=== PATIENT | female | born 1955 ===

== ENCOUNTER 2024-04-01 15:25 | Outpatient (AMB) | payer MEDICARE, OTHER, SELFPAY ==
--- NOTE | 2024-04-01 15:31 | HO.NEPHOV_ITS ---
Vital Signs 04/01/24 15:33 Height 5 ft 6 in Weight 199 lb 6 oz BMI 32.2 BP 116/82 Blood Pressure Location Rt brachial Position Sitting Pulse 102 H Pulse Source Pulse Oximeter Pulse Oximetry (%) 96 Oxygen Delivery Method Room Air Intake Visit Reasons: Continuing care- CKD Quality Control Checker Required: No Accompanied by: Self / Same As Patient Allergies No Known Allergies Allergy (Verified 04/01/24 15:31) Medication List - Last Reconciled 04/01/24 by Nima Medrano MD cholecalciferol (vitamin D3) 50 mcg PO DAILY levothyroxine (Synthroid) 125 mcg PO DAILY losartan 25 mg PO DAILY rosuvastatin 10 mg PO DAILY HPI Comments Details: 69 yr old woman with HTN an d hypercalcemia s/p Parathyroidectomy h/o chronic cough due to GERD PFSH Medical History (Updated 04/01/24 @ 15:36 by Nima Medrano MD) Stage 3 chronic kidney disease Hyperparathyroidism Surgical History H/O thyroidectomy History of appendectomy Family History Father Diabetes Social History (Updated 04/01/24 @ 15:33 by Rashida Blevins MA) Alcohol intake: current Comment: Social Patient Tobacco Use Status: Never used Tobacco Physical Exam Vital Signs: Last Vital Signs Pulse 102 H 04/01/24 15:33 BP 116/82 04/01/24 15:33 Pulse Ox 96 04/01/24 15:33 Oxygen Delivery Method Room Air 04/01/24 15:33 BMI result Body Mass Index 32.2 Const General: comfortable; No acute distress Orientation/consciousness: patient oriented x3 Eyes General: appearance normal, both eyes and all related structures Visual Inman: normal visual inman by confrontation Neck Neck: Yes supple and Yes no JVD Resp Effort & Inspection: normal respiratory effort and respiratory effort not decreased Auscultation: rhonchi Cardio Palpation: no palpable S3 and no palpable S4 Heart sounds: no rubs GI Inspection: Yes normal to inspection Palpation (GI): Soft to palpation Percussion: Yes normal to percussion Auscultation: normal bowel sounds General: Yes no CVA tenderness Back/Spine/Pelvis Back: no CVA tenderness Skin General skin exam: no petechiae and no purpura Neuro General: patient oriented x3 and no focal motor deficits Extrem General: No clubbing and No edema Results Reviewed Nephrology Results: No Data to Display Assessment & Plan Assessment & Plan (1) HTN (hypertension): Code(s): I10 - Essential (primary) hypertension Category: Medical (2) Hypercalcemia: Code(s): E83.52 - Hypercalcemia Category: Medical (3) CKD (chronic kidney disease): Code(s): N18.9 - Chronic kidney disease, unspecified Category: Medical Plan Blood Pressure well controlled Encouraged to stay on low-sodium diet Discussed weight loss Continue with current medications History of hypercalcemia she follows with endocrinology. Orders: Orders Parathyroid Hormone Intact 6 Months E83. - Hypercalcemia, I10 - Essential (primary) hypertension, N18.9 - Chronic kidney disease, unspecified Complete Blood Count Auto Diff 6 Months E83.52 - Hypercalcemia, I10 - Essential (primary) hypertension, N18.9 - Chronic kidney disease, unspecified Basic Metabolic Panel 6 Months E83.52 - Hypercalcemia, I10 - Essential (primary) hypertension, N18.9 - Chronic kidney disease, unspecified Coding Level of Care Code Est Pt Level 3 (89974) Diagnoses HTN (hypertension) I10 Hypercalcemia E83. CKD (chronic kidney disease) N18.9
[2024-04-01 15:33] VITALS: BP 116/82; PULSE 102; O2SAT 96; BMI 32.2
== END 2024-04-01 15:52 | disposition home or self-care (01) ==
PROVIDERS: PCP Physician Assistant Medical; Visit Provider Internal Medicine Hypertension Specialist
DX: I12.9 Hypertensive chronic kidney disease with stage 1 through stage 4 chronic kidney disease, or unspecified chronic kidney disease (principal); N18.9 Chronic kidney disease, unspecified; E83.52 Hypercalcemia
CPT/HCPCS: 99213

== ENCOUNTER → 2024-04-01 15:25 | Outpatient (BNVA) | payer MEDICARE, OTHER, SELFPAY | PROVIDERS: PCP Physician Assistant Medical; Visit Provider Internal Medicine Hypertension Specialist | DX: E83.52 Hypercalcemia (principal); I12.9 Hypertensive chronic kidney disease with stage 1 through stage 4 chronic kidney disease, or unspecified chronic kidney disease; N18.9 Chronic kidney disease, unspecified | CPT/HCPCS: 99212 ==

== ENCOUNTER 2024-09-09 14:02 | Outpatient (AMB) | payer MEDICARE, OTHER, SELFPAY ==
--- NOTE | 2024-09-09 14:05 | HO.NEPHOV ---
Vital Signs 09/09/24 14:07 Height 5 ft 6 in Weight 199 lb BMI 32.1 BP 122/86 Blood Pressure Location Lt brachial Position Sitting Pulse 87 Pulse Source Pulse Oximeter Pulse Oximetry (%) 98 Oxygen Delivery Method Room Air Intake Visit Reasons: 6 mon follow up/ Conf Cytotechnologist/Cytology Supervisor Required: No Accompanied by: Self / Same As Patient Allergies No Known Allergies Allergy (Verified 09/09/24 14:09) Medication List - Last Reconciled 09/09/24 by Nima Medrano MD cholecalciferol (vitamin D3) 50 mcg PO DAILY levothyroxine (Synthroid) 125 mcg PO DAILY losartan 25 mg PO DAILY montelukast 10 mg PO DAILY rosuvastatin 10 mg PO DAILY HPI Comments Details: 69 yr old woman with HTN an d hypercalcemia s/p Parathyroidectomy h/o chronic cough due to GERD Recently seen by Endocrine. No changes made BAck pain - chronic- waiting for PT [facility] Medical History (Updated 04/01/24 @ 15:36 by Nima Medrano MD) Stage 3 chronic kidney disease Hyperparathyroidism Surgical History H/O thyroidectomy History of appendectomy Family History Father Diabetes Social History Alcohol intake: current Comment: Social Patient Tobacco Use Status: Never used Tobacco Physical Exam Vital Signs: Last Vital Signs Pulse 87 09/09/24 14:07 BP 122/86 09/09/24 14:07 Pulse Ox 98 09/09/24 14:07 Oxygen Delivery Method Room Air 09/09/24 14:07 BMI result Body Mass Index 32.1 Comfortable Neck supple no JVD. Lungs entry equal no rales. Heart S1-S2 heard no gallop or rub. Abdomen soft nontender. Neuro alert awake oriented. No asterixis. Extremities no edema. Results Reviewed Nephrology Results: No Data to Display Assessment & Plan Assessment & Plan (1) HTN (hypertension): Code(s): I10 - Essential (primary) hypertension Category: Medical (2) Hypercalcemia: Code(s): E83.52 - Hypercalcemia Category: Medical (3) CKD (chronic kidney disease): Code(s): N18.9 - Chronic kidney disease, unspecified Category: Medical Plan Blood Pressure well controlled Encouraged to stay on low-sodium diet Discussed weight loss Continue with current medications History of hypercalcemia she follows with endocrinology. Orders: Orders Comprehensive Met. Panel 1 Year E83.52 - Hypercalcemia, N18.9 - Chronic kidney disease, unspecified Coding Level of Care Code Est Pt Level 4 (32468) Diagnoses HTN (hypertension) I10 Hypercalcemia E83.52 CKD (chronic kidney disease) N18.9
[2024-09-09 14:07] VITALS: BP 122/86; PULSE 87; O2SAT 98; BMI 32.1
--- OUTSIDE RECORDS SUMMARY | 2024-09-09 15:21 | XMS_ITS ---
Author Name [facility] Organization Unknown Results Test Name/Text Value Interpretation Date Range Source Cholest SerPl-mCnc 220mg/dL Above high normal [id number] - 200 [facility] Cholest/HDLc SerPl 3.9(calc) Normal - 5 [facility] LDLc SerPl Calc-mCnc 136mg/dL(calc) Above high normal [id number] [facility] Trigl SerPl-mCnc 149mg/dL Normal - 150 [facility] NonHDLc SerPl-mCnc 164mg/dL(calc) Above high normal 20240716 0724 - 130 [facility] HDLc SerPl-mCnc 56mg/dL Normal - Q [facility] Prot SerPl-mCnc 7.3g/dL Normal 6.1 - 8.1 Q [facility] ALP SerPl-cCnc 60U/L Normal 37 - 153 [facility] BUN/Creat SerPl 17(calc) Normal 6 - 22 Q [facility] Albumin/Glob SerPl 1.4(calc) Normal 1 - 2.5 [facility] Creat SerPl-mCnc 1.43mg/dL Above high normal 0. 5 - 1.05 [facility] Potassium SerPl-sCnc 4.6mmol/L Normal 3.5 - 5.3 [facility] Albumin SerPl-mCnc 4.2g/dL Normal 3.6 - 5. 1 [facility] Sodium SerPl-sCnc 139mmol/L Normal 135 - 146 [facility] Globulin Ser Calc-mCnc 3.1g/dL(calc) Normal 1.9 - 3.7 [facility] Bilirub SerPl-mCnc 0.6mg/dL Normal 0.2 - 1. 2 [facility] Calcium SerPl-mCnc 9.5mg/dL Normal 8.6 - 10 .4 [facility] BUN SerPl-mCnc 24mg/dL Normal [id number] 7 - 25 [facility] Glucose SerPl-mCnc 93mg/dL Normal [id number] 65 - 99 [facility] eGFRcr SerPlBld CKD-EPI 2020 40mL/min/1.73m 2 Below low normal [id number] - [facility] AST SerPl-cCnc 18U/L Normal [id number] 10 - 35 [facility] CO2 SerPl-sCnc 24mmol/L Normal [id number] 20 - 32 [facility] Chloride SerPl-sCnc 104mmol/L Normal [id number] 98 - 11 0 [facility] ALT SerPl-cCnc 13U/L Normal [id number] 6 - 29 [facility] TSH SerPl-aCnc 0.97mIU/L Normal 0.4 - 4.5 [facility] MCH RBC Qn Auto 31pg Normal [id number] 27 - 33 Q [facility] MCV RBC Auto 93fL Normal [id number] 80 - 100 [facility] T RBC # Bld Auto 4.45Million/uL Normal [id number] 3.8 - 5 .1 [facility] Monocytes # Bld Auto 502cells/uL Normal [id number] 200 - 950 [facility] PMV Bld Patricio-Meliton 10.2fL Normal 7.5 - 12 .5 [facility] Monocytes/leuk NFr Bld Auto 7.6% Normal [id number] [facility] Basophils/leuk NFr Bld Auto 1.4% Normal [id number] [facility] Neutrophils/leuk NFr Bld Auto 67.6% Normal [id number] [facility] RDW RBC Auto-Rto 12.5% Normal [id number] 11 - 15 [facility] Lymphocytes/leuk NFr Bld Auto 20.7% Normal [id number] [facility] WBC # Bld Auto 6.6Thousand/uL Normal [id number] 3.8 - 1 0.8 [facility] Platelet # Bld Auto 343Thousand/uL Normal [id number] 14 0 - 400 [facility] Neutrophils # Bld Auto 4462cells/uL Normal [id number] 1500 - 7800 [facility] Hgb Bld-mCnc 13.8g/dL Normal [id number] 11.7 - 15.5 [facility] Hct VFr Bld Auto 41.4% Normal 35 - 45 [facility] Eosinophil/leuk NFr Bld Auto 2.7% Normal [facility] Basophils # Bld Auto 92cells/uL Normal 0 - 2 00 [facility] MCHC RBC Auto-mCnc 33.3g/dL Normal 32 - 36 [facility] Lymphocytes # Bld Auto 1366cells/uL Normal 850 - 3900 [facility] Eosinophil # Bld Auto 178cells/uL Normal 15 - 500 [facility] HbA1c MFr Bld 5.7%oftotalHgb Above high normal - 5.7 [facility] Est. average glucose Bld gHb Est-mCnc 126mg/dL(calc) Normal [facility] History of Medication Use Medication Directions Dispensed Refills Start Date End Date Stat us famotidine 20 mg tablet active losartan 25 mg tablet Take 1 tablet every day by oral route. active Jardiance 10 mg tablet 5 completed montelukast 10 mg tablet active benzonatate 100 mg capsule active pantoprazole 40 mg tablet,delayed release active clobetasol 0.05 % topical ointment active cephalexin 500 mg capsule TAKE 1 CAPSULE BY MOUTH TWICE DAILY FOR 7 DAYS 5 completed rosuvastatin 20 mg tablet Take 1 tablet every day by oral route. active albuterol sulfate HFA 90 mcg/actuation aerosol inhaler active Synthroid 125 mcg tablet active nitrofurantoin monohydrate/macrocry stals 100 mg capsule TAKE 1 CAPSULE BY MOUTH EVERY 12 HOURS FOR 7 DAYS 5 completed budesonide-formotero l HFA 160 mcg-4.5 mcg/actuation aerosol inhaler INHALE 2 PUFFS INTO THE LUNGS TWICE DAILY active clobetasol 0.05 % topical ointment APPLY A THIN LAYER TO THE AFFECTED AREA(S) BY TOPICAL ROUTE 2 TIMES PER DAY; not on face; 2 weeks on/2 weeks off 09/03/2024 active vitamin D3 (cholecalciferol) 10 MCG (400 UNIT) tablet Take 1 tablet (10 mcg total) by mouth daily. active estradiol (ESTRACE VAGINAL) 0.1 MG/GM vaginal cream Place 0.2 g vaginally daily. Small amount at the vaginal introitus and periurethral tissue daily for 2 weeks and then twice a week. 05/31/2022 active Macrobid 100 mg capsule active rosuvastatin (CRESTOR) tablet 20 mg 07/18/2023 active Synthroid 125 MCG tablet TAKE 1 TABLET EVERY MORNING ON AN EMPTY STOMACH 03/29/2023 active sumatriptan 100 mg tablet Take 1 tablet (100 mg total) by mouth 2 (two) times a day as needed for migraine. 11/19/2018 3 completed rosuvastatin (CRESTOR) tablet 20 mg 07/18/2023 active Synthroid 125 MCG tablet TAKE 1 TABLET EVERY MORNING ON AN EMPTY STOMACH 03/29/2023 active metformin 500 mg tablet TAKE 1 TABLET BY MOUTH EVERY DAY WITH BREAKFAST, INCREASE TO 1 TABLET TWICE DAILY DAILY WITH MEALS AFTER 2 WEEKS 06/06/2022 3 completed albuterol 108 (90 Base) MCG/ACT inhaler Inhale 2 puffs into the lungs every 6 (six) hours as needed for wheezing or shortness of breath. 06/21/2022 active pantoprazole 40 mg tablet,delayed release Take 1 tablet (40 mg total) by mouth every morning on an empty stomach. 11/29/2023 4 completed montelukast 10 mg tablet Take 1 tablet (10 mg total) by mouth daily. For allergies (in addition to Zyrtec) 07/17/2023 active estradiol (ESTRACE VAGINAL) 0.1 MG/GM vaginal cream Place 0.2 g vaginally daily. Small amount at the vaginal introitus and periurethral tissue daily for 2 weeks and then twice a week. 05/31/2022 4 aborted rosuvastatin 10 mg tablet Take 1 tablet (10 mg total) by mouth every night at bedtime. 04/18/2022 3 completed cetirizine (ZyrTEC) 10 MG tablet Take 1 tablet (10 mg total) by mouth daily. As needed active Problems Problem Status Onset Date Problem Type Date of Resolution Source Hypothyroidism, unspecified active ProblemAct CT_PHYSONE Urgency of urination active ProblemAct CT_PHYSONE Cough, unspecified type active EncounterDiagnos isAct CTTHSFRAN Lipoprotein above reference range active ProblemAct CT_SONE Chronic low back pain active ProblemAct CT_SONE Chronic cough active ProblemAct ENS_[facility] Hypercholesterolemia active ProblemAct ENS_PH[facility] Obesity caused by energy imbalance active ProblemAct ENS_PH[facility] Ascending aortic aneurysm active ProblemAct CTTHNEMG Diastolic dysfunction active ProblemAct CT_SONE Calcification of coronary artery active ProblemAct CT_SONE History of primary hyperparathyroidism active ProblemAct CT_SONE Osteopenia active ProblemAct CT_SONE Body mass index 30+ - obesity active ProblemAct CT_SONE Acquired hypothyroidism active ProblemAct CT_SONE Osteoporosis active ProblemAct CT_SONE Chronic kidney disease stage 3A active ProblemAct CT_SONE Hyperlipidemia, unspecified active ProblemAct CT_PHYSONE Urinary tract infection, site not specified active ProblemAct CT_PHYSONE Stage 3 chronic kidney disease active ProblemAct CTTHNEMG Non-seasonal allergic rhinitis active ProblemAct CTTHNEMG Adult hypothyroidism active ProblemAct CTTHNEMG Osteoporosis active ProblemAct CTTHNEMG Hypercalcemia active ProblemAct CTTHNEMG Elevated Lp(a) active ProblemAct CTTHNEMG Gastroesophageal reflux disease with esophagitis active ProblemAct CTTHNEMG Migraine without aura and without status migrainosus, not intractable active ProblemAct CTTHNEMG Essential hypertension active ProblemAct CTTHNEMG Class 1 obesity due to excess calories with serious comorbidity and body mass index (BMI) of 31.0 to 31.9 in adult active ProblemAct CTTHNEMG Primary snoring active ProblemAct CTTHNEMG Family history of osteoporosis in mother active ProblemAct CTTHNEMG Pure hypercholesterolemia active ProblemAct ENS_PHCCT Family history of osteoporosis active ProblemAct ENS_PHCCT Snoring active ProblemAct ENS_[facility] History of primary hyperparathyroidism active ProblemAct CTTHNEMG Pure hypercholesterolemia active ProblemAct CTTHNEMG Ascending aorta dilatation active ProblemAct CT_SONE Recurrent urinary tract infection active ProblemAct ENS_[facility] History of procedure active ProblemAct ENS_[facility] Essential hypertension active ProblemAct ENS_[facility] kidney disease active ProblemAct CT_P HYSONE Chronic cough active ProblemAct CTTHNEMG Gu's esophagus with dysplasia active ProblemAct CTTHNEMG Hyperlipidemia active ProblemAct CT_SONE Chronic cough active ProblemAct CT_SONE Aneurysm of ascending aorta active ProblemAct ENS_[facility] Allergic rhinitis active ProblemAct ENS_[facility] Chronic kidney disease stage 3 active ProblemAct ENS_[facility] Migraine without aura, not refractory active ProblemAct ENS_PH[facility] Gastro-esophageal reflux disease with esophagitis active ProblemAct ENS_PHCCT Osteoporosis active ProblemAct ENS_PHCCT Barretts esophagus with dysplasia active ProblemAct [facility] Lipoprotein (a) hyperlipoproteinemia active ProblemAct ENS_PH[facility] Hypothyroidism active ProblemAct ENS_[facility] Urinary tract infection, site not specified active ProblemAct CT_PHYSONE Hypercalcemia active ProblemAct [facility] History of primary hyperparathyroidism active ProblemAct ENS_[facility] Immunizations Vaccine Date Source Lot Number Status Influenza, injectable, quadr ivalent, preservative free 07/12/2015 [facility] [id number] completed pneumococcal polysaccharide vaccine, 23 valent 06/22/2014 [facility] completed SARS-COV-2 (COVID-19) vaccin e, mRNA, spike protein, LNP, preservative free, 50 mcg/0.5 mL dose 07/04/2023 [facility] completed zoster vaccine subunit 05/01/2022 [facility] co mpleted zoster vaccine subunit 08/16/2021 [facility] co mpleted pneumococcal conjugate vaccine, 13 valent 07/08/2014 [facility] completed zoster vaccine, live 08/05/2016 [facility] comp leted influenza, injectable, quadr ivalent, contains preservative 06/15/2016 [facility] [id number] completed SARS-COV-2 (COVID-19) vaccin e, mRNA, spike protein, LNP, preservative free, 100 mcg/0.5mL dose 09/28/2020 [facility] KL completed pneumococcal conjugate vaccine, 13 valent 03/22/2017 [facility] completed SARS-COV-2 (COVID-19) vaccin e, mRNA, spike protein, LNP, preservative free, 30 mcg/0.3mL dose 05/08/2022 [facility] completed SARS-COV-2 (COVID-19) vaccin e, mRNA, spike protein, LNP, bivalent booster, preservative free, 30 mcg/0.3 mL dose, mary-sucrose formulation 05/08/2022 [facility] complet ed Influenza, injectable,[place] valent, preservative free, pediatric 06/15/2016 [facility] [id number] com pleted tetanus toxoid, reduced diph theria toxoid, and acellular pertussis vaccine, adsorbed 07/08/2014 [facility] completed Influenza, injectable, quadr ivalent, preservative free 05/13/2018 [facility] [id number] completed pneumococcal polysaccharide vaccine, 23 valent 06/29/2013 [facility] completed Influenza, injectable, quadr ivalent, preservative free 06/04/2019 [facility] [id number] completed influenza, seasonal vaccine, quadrivalent, adjuvanted, 0.5 mL dose, preservative free 07/04/2023 [facility] completed SARS-COV-2 (COVID-19) vaccin e, mRNA, spike protein, LNP, preservative free, 100 mcg/0.5mL dose 10/26/2020 [facility] KL completed
--- OUTSIDE RECORDS SUMMARY | 2024-09-09 15:21 | XMS_ITS | Encounter Summary ---
Author Organization [facility] Address [address] [place] [id number] Care Team Providers Care Boom Operator Name Role Phone Kym Kenny Primary Care Provider [phone] Reason for Visit * Reason Comments Thyroid Nodule Encounter Details Date Type Department Care Team (Latest Contact Info) Description 08/19/2024 10:30 AM EST Consult [facility] Endocrinology [address] [place] [address] Kassandra Berry MD [address] [facility] [address] [place] [address] Hyperparathyroidism (Primary Dx); Acquired hypothyroidism; H/O parathyroidectomy; Stage 3b chronic kidney disease (HCC) Social History Tobacco Use Types Packs/Day Years Used Date Smoking Tobacco: Never Passive Smoke Exposure: Never Smokeless Tobacco: Never Tobacco Cessation:Counseling Given: Not Answered Alcohol Use Standard Drinks/Week Comments Yes 0 (1 standard drink = 0.6 oz pur e alcohol) rare Sex and Gender Information Value Date Recorded Sex Assigned at Not on file Gender Identity Not on file Sexual Orientation Not on file documented as of this encounter Last Filed Vital Signs Vital Sign Reading Time Taken Comments Blood Pressure 160/89 08/19/2024 10:16 AM EST Pulse 101 08/19/2024 10:16 AM EST Temperature - - Respiratory Rate - - Oxygen Saturation 98% 08/19/2024 10:16 AM EST Inhaled Oxygen Concentration - - Weight 51.3 kg (113 lb) 08/19/2024 10:16 AM EST Height 167.6 cm (5' 6 ) 08/19/2024 10:16 AM EST Body Mass Index 18.24 08/19/2024 10:16 AM EST documented in this encounter Patient Instructions * Patient Instructions* Kassandra Berry MD - 08/19/2024 11:02 AM EST Visit [email or web address] for additional resources and information. The keys to prevention of bone loss: 1) Consume calcium 1000 mg a day (1200 mg for women > 60 years old, men > 70 years old) Ideally it is good to get in as much calcium from your diet as possible; if needed you can add calcium supplements to achieve daily goal. Calcium citrate (Citracal) is less constipating than calcium carbonate and is best for people usinga proton pump inhibitor (e.g. Prilosec) TUMS Ultra 1000mg tab = 400mg of calcium. Foods high in calcium (look at labels for exact amounts): -cheese (Congolese, mozzarella, ricotta)= 175-300 mg per 1 oz serving -soymilk with added calcium, soybeans= 300 mg per 8 oz serving -milk, almond milk, coconut milk, rice milk, oat milk that are fortified with calcium = around 300 mg per 1 cup -tofu prepared with calcium= 200-400 mg per 1 oz -salmon= 180 per 3 oz -yogurt (low-fat, Serbian or plain)= 200-300 mg per 6 oz. -broccoli, bok tiffanie (Frisian cabbage, raw)= 60-75 mg per 8 oz. You can calculate your current calcium intake at the following website: https://www.b.edu/shp/kathi/ueaz-8-dwqocmqon-and-supplements/why-calci qj-ju-yfobrrika/calcium-calculator 3) RESISTANCE TRAINING / Weight bearing / Balance exercises: - resistance training, whole body muscle mass maintenance is marvin for keeping bones strong and avoiding falls. Safe training can be done with a local physical therapist or personal clothing laundry aide. -Posture exercises to reduced rounded shoulders -Balance exercise to strengthen legs/core to decrease your risk of falling -Walking 30 minutes a day -Yogarogelio Please check out this helpful website: https://www.bonehealthandosteoporosis.org/wp-content/uploads/BoningUpBrochure_[email or web address] 5x11.pdf documented in this encounter Progress Notes * Kassandra Berry MD - 08/19/2024 10:34 AM EST Images from the original note were not included. ENDOCRINOLOGY Follow-up Progress Note CC: Chief Complaint Patient presents with Thyroid Nodule Patients PCP is DORIS Smith History of present Illness: 67 y.o. presents in follow up of bone health and hyperpara. Initial consultation 2017. Told in distant past she had osteoporosis and treated with Fosamax in early . H/o PTX 2009. No fragility fractures. 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 08/19/24: Known to me from prior practice. Chart reviewed. In the interim since her last visit: Started seeing pulmonary, significant allergies and chronic cough, better on singulair and symbicort. No longer on ARB--stopped on her own. Remains on brand name synthroid 125mcg daily No biotin use. Had labs recently with PCP in July-those have been requested Drinks milk daily and occ yogurt, cheese. No TUMS. No calcium supplements. Had some falls in 2023 but no fractures. Needed stitches around eye, hurt left knee. She thinks it was certain shoes she was wearing. Feels her balance is OK. Was having some orthostasis but has since resolved. No kidney stones no chronic steroid use Remains on PPI 11/26/22: Over past year has had marked variability of her TSH levels. Tired a lot, gaining weight. No constipation. Very dry skin (chronically). Now on lt4 125mcg daily, taking in am, empty stomach, waits at least 1 hour to have coffee. No vitamins. Recent celiac screen negative. Has a chronic cough of unclear etiology, taking vitamin C. No fractures over past year. No kidney stones. Tripped last week, feel to ground, bruise on knee. No kidney stones. Drinking milk, eating yogurt and cheese. No calcium supps. On vitamin D. Walks for exercise, no real resistance training. Ongoing hip pain when walking. Interval History Sep 04, 2021: Healthy since last visit. No acute illnesses or hospitalizations. Skin is really dry and she is not sure if she is had a recent TSH level by her other providers. No falls or fractures. On vit D but no calcium. Drinks milk daily but limited other dairy intake or calcium intake during the day. No kidney stones. No steroid exposures. Continue seeing Dr. Crowley in nephrology and has an upcoming visit in September. Interval History November 2020: Last visit Jun 2019. Labwork in January 2019 c/w secondary hpyerpara with vitamin d insufficiency, inadequate calcium intake and CKD. Healthy since visit 18 months ago. No hospitalizations or ER visits. Medications have been reconciled. No falls, fractures, kidney stones or steroid use since last year. Has been having some left lateral hip pain when she walks. No pain with palpation or sleeping at night. Pain resolves when she rests. Has not had any x- rays or physical therapy evaluation. In review of her history, states she was treated for osteoporosis by Dr. Toscano about 15-20 years ago with Fosamax, a few years . No bone targeted therapy since that time. No history of fragility fractures. Very steady on her feet with no history of falling. Menopause age 44, natural, eventually used HRT about 4-5 years after for about 3 years for hot flashes. Mother has OP, broke her wrist. No h/o kidney stones. Does have a history of primary hyperparathyroidism s/p resection in 2009 at [place]; Parathyroidectomy performed by Dr. Crooks with decline in PTH from 260 to 23 during procedure. Operative report reviewed from February 10, 2010, left lower parathyroid adenoma 1.48 g, measuring 3.2 x 1.0 x 0.7 cm. Surgical pathology showed hypercellular parathyroid tissue consistent with adenoma. Slightly elevated iPTH in 2016, with CKD stage III for which she sees Dr. Crowley. No chronic steroids. No current AED's or anticoagulants. + vitamin D use; no calcium supp use. Milk every day with dinner, sometimes with cereal, yogurt daily. No MVI. No history of cancer or XRT. Walks daily. No strength training. Retired from medical billing. Exposed to second hand smoke, but she is lifelong nonsmoker. Social etoh only. Past medical history: Past Medical History: Diagnosis Date Hyperlipidemia Diagnosis Date Chronic headache CKD (chronic kidney disease) dr yost; cr=1.4; gina small kidney Dyspnea H/O mammogram 06/29/2019 06/11/2019 mammogram History of ETT in 6 months 2014 HLD (hyperlipidemia) not on meds yet Hypothyroidism Obesity No past surgical history on file. Procedure Laterality Date APPENDECTOMY 2009 CHOLECYSTECTOMY 2001 KIDNEY SURGERY 1965 PARATHYROIDECTOMY 2009 Social history: Social History Tobacco Use Smoking status: Never Passive exposure: Never Smokeless tobacco: Never Substance Use Topics Alcohol use: Yes Comment: rare Drug use: Never Family History No family history on file. Problem Relation Age of Onset Osteoporosis Mother Lumbar disc disease Mother Diabetes Father Lung cancer Father COPD Father Smoker Emphysema Father Heart disease Brother Hypertension Brother No Sig Med Hx Brother Osteoarthritis Brother Diabetes Unknown Medications Current Outpatient Medications: albuterol (PROVENTIL HFA; VENTOLIN HFA) 108 (90 Base) MCG/ACT inhaler, Inhale 2 puffs 4 times daily(every 6 hours) as needed., Disp: , Rfl: budesonide-formoterol (SYMBICORT) 160-4.5 MCG/ACT inhaler, Inhale 2 puffs., Disp: , Rfl: cholecalciferol 10 MCG (400 UNIT) tablet, Take 1 tablet (400 Units total) by mouth., Disp: , Rfl: levothyroxine (SYNTHROID, LEVOTHROID) 125 MCG tablet, Take 1 tablet (125 mcg total) by mouth., Disp: , Rfl: montelukast (SINGULAIR) 10 MG tablet, Take 1 tablet (10 mg total) by mouth., Disp: , Rfl: PANTOprazole (PROTONIX) 40 MG EC tablet, Take 1 tablet (40 mg total) by mouth., Disp: , Rfl: rosuvastatin (CRESTOR) 10 MG tablet, Take 1 tablet (10 mg total) by mouth daily., Disp: , Rfl: Allergies Not on File Review of Systems as in HPI. In addition HEENT no blurry vision, no dysphagia CVS no palpitations, no dyspnea on exertion, no chest pain GI no abdominal pain, no change in BMs no dysuria, no polyuria, no nocturia Endo no heat or cold intolerance Physical exam Vitals: 08/19/24 1016 BP: (!) 160/89 Pulse: (!) 101 SpO2: 98% Weight change: Wt Readings from Last 3 Encounters: 08/19/24 51.3 kg (113 lb) Ht Readings from Last 3 Encounters: 08/19/24 1.676 m (5' 6 ) Body mass index is 18.24 kg/m??. Constitutional: Oriented to person, place, and time. She appears well-developed and well-nourished.No distress. Euthyroid without cushingoid or acromegalic features. Overweight, diffusely distributed Head: Normocephalic and atraumatic. Mask in place Eyes: Conjunctivae and EOM are normal. Right eye exhibits no discharge. Left eye exhibits no discharge. No scleral icterus. Neck: One-inch, pale horizontal low anterior neck scar. Normal range of motion. Neck supple. No tracheal deviation present. No thyromegaly present. Cardiovascular: Normal rate, regular rhythm, normal heart sounds and intact distal pulses. Exam reveals no friction rub. No murmur heard. Pulmonary/Chest: Effort normal and breath sounds normal. No stridor. No respiratory distress. She has no wheezes. She has no rales. Musculoskeletal: She exhibits no edema, tenderness or deformity. Spine is straight with no tenderness to palpation. Lymphadenopathy: She has no cervical adenopathy. Neurological: No hand tremors. Negative Romberg. Tandem stance borderline. Skin: Skin is warm and dry. No rash noted. She is not diaphoretic. No erythema. No pallor. No acanthosis or skin tags. No striae. Psychiatric: She has a normal mood and affect. Her behavior is normal. Judgment and thought contentnormal. Labs: July 15, 2024: Total cholesterol 220, HDL 56, triglycerides 149, LDL 136 BUN 24, creatinine 1.43, GFR 40 Calcium 9.5, albumin 4.2, alk phos 60 A1c 5.7% TSH 0.97 Normal CBC December 14, 2022: TSI less than 89 TRAb normal at 1.12 IU per L (less than 2) TPO elevated at 26, TG antibody less than 03 October 2022: IgA 308, negative tissue transglutaminase IgA January 2019: NTX 30 Imaging: Bone density December 20, 2016: Done at [facility] equipment Comparison: 2015 examination L2 and L3 excluded due to degenerative changes. L1, L4 0.923 g% meter squared, T score -2, 3.7% increase Bilateral femurs 0.894 g/cm??, T score -0.9, 2.3% decrease, statistically insignificant. [facility] imaging bone density June 16, 2019: L1-L4 1.0 g/cm??, T score -1.5, 2.4% nonsignificant decrease compared to 2017. Bilateral femurs 0.915 g/cm??, T score -0.7, 2.3% increase compared to 2017 nonsignificant Distal radius 0.906 g/cm??, T score 0.2 Lowest bone density at the lumbar spine consistent with osteopenia. Compared to 2017 no significantchange in the spine and femurs and the right distal radius is normal. July 06, 2021: Bone density at [facility] [employer] L1 through L4 1.042 g/cm??, T score 1.2, 4.2% increase compared to 2019 Left femoral neck 0.924 g/cm??, T score -0.8 Right femoral neck 0.868 g/cm??, T score -1.2 1.2% decrease in the total mean bone density of both femurs, and significant Right forearm 0.908 g/cm??, T score 0.2, no significant interval change compared to prior. Bone density study October 2023, [facility]: Indication and risk factors: Postmenopausal female. Screening for osteoporosis. No priors. Study acquired on a LookIt Advance densitometer. Imaging of the lumbar spine, left forearm and hip was completed. FINDINGS: LUMBAR SPINE Averaged L1 through L4: Bone density: 1.08 g/cm2 Z score: 0.1 T score: -0.9 LEFT HIP Left femoral neck: Bone density: 0.89 g/cm2 Z score: 0.1 T score: -1.0 LEFT FOREARM Left radius 33%: Bone density: 0.92 g/cm2 Z score: 2.2 T score: 0.5 CONCLUSION: 1. Bone density measures within normal limits. ASSESSMENT/PLAN: Ynes Meadows is a 69 y.o. woman with past medical history significant for Gu's esophaguson Protonix, allergies and chronic cough on Symbicort, CKD 3 (sees Dr. Robin), hypothyroidism, chronic back pain who is seen in follow up of bone health in setting of past primary hyperparathyroidismstatus post resection in 2009 and current CKD3b and secondary hyperparathyroidism. She reports being treated for osteoporosis in the distant past () but has no h/o fragility fractures and recentnormal bone densities, last in October. Risks for future fracture include her age, postmenopausalstatus, secondary hyperparathyroidism with CKD stage III, chronic PPI use. Suspected inadequate calcium intake. Recent labwork showed normal calcium/albumin, stable renal function. Clinically and biochemically euthyroid. Plan: - No need for bone targeted therapy at this time. We again today discussed adequate daily calcium intake; I recommend she add either a calcium supplement or calcium-containing food to breakfast on a daily basis. - Discussed again today the importance of weightbearing exercise and maintaining muscle mass. - recommend PT for her back pain - check parathyroid labs now. Empiric RTC in about 1 year but she could also follow up with PCP given stable findings, especiallyif upcoming labwork stable. Encounter Diagnoses Name Primary? Hyperparathyroidism Yes Acquired hypothyroidism H/O parathyroidectomy No orders of the defined types were placed in this encounter. Kassandra Berry MD documented in this encounter Plan of Treatment Upcoming Encounters Date Type Department Care Team (Late st Contact Info) Description 08/18/2025 3:15 PM EST Office Visit [facility] Endocrinology [address] [phone] Kassandra Berry MD [address] [place] [phone] documented as of this encounter Procedures Procedure Name Priority Date/Time Associated Diagnosis Comments PTH, INTACT WITH IONIZED CALCIUM Routine 09/08/2024 10:51 AM EST Hyperparathyroidism Stage 3b chronic kidney disease (HCC) VITAMIN D, 25-HYDROXY Routine 09/08/2024 10:51 AM EST Hyperparathyroidism Stage 3b chronic kidney disease (HCC) PHOSPHORUS Routine 09/08/2024 10:51 AM EST Hyperparathyroidism Stage 3b chronic kidney disease (HCC) MAGNESIUM Routine 09/08/2024 10:51 AM EST Hyperparathyroidism Stage 3b chronic kidney disease (HCC) documented in this encounter Results * VITAMIN D, 25-HYDROXY (09/08/2024 10:51 AM EST) Vitamin D,25-Oh,Total, IA 39 30 - 100 ng/mL [facility] Comment: Vitamin D Status ? 25-OH Vitamin D: Deficiency: ?<20 ng/mL Insufficiency: ? 20 - 29 ng/mL Optimal: ? > or = 30 ng/mL For 25-OH Vitamin D testing on patients on D2-supplementation and patients for whom quantitation of D2 and D3 fractions is required, the QuestAssureD(TM) 25-OH VIT D, (D2,D3), LC/MS/MS is recommended: order code 39122 (patients >2yrs). See Note 1 Note 1 For additional information, please refer to http://education.The [employer] Tracker/faq/TDG057 (This link is being provided for informational/ educational purposes only.) Blood Blood specimen / Unknown 09/08/2024 10:51 AM EST 09/08/2024 10:52 AM EST Gather - 09/09/2024 1:48 PM EST FASTING:YES FASTING: YES Kassandra Berry MD LAB BLOOD ORDERABLES [email or web address] [address] [place] [phone] * PHOSPHORUS (09/08/2024 10:51 AM EST) Pathologist [facility] Phosphorus 3.7 2.1 - 4.3 mg/dL [facility] Blood Blood specimen / Unknown 09/08/2024 10:51 AM EST 09/08/2024 10:52 AM EST Gather - 09/09/2024 1:48 PM EST FASTING:YES FASTING: YES Kassandra Berry MD LAB BLOOD ORDERABLES Performing Organization Address [facility] de Phone Number [email or web address] [address] [place] [phone] * MAGNESIUM (09/08/2024 10:51 AM EST) Pathologist [facility] Magnesium 2.1 1.5 - 2.5 mg/dL [facility] Blood Blood specimen / Unknown 09/08/2024 10:51 AM EST 09/08/2024 10:52 AM EST Narrative [facility] - 09/09/2024 1:48 PM EST FASTING:YES FASTING: YES Kassandra Berry MD LAB BLOOD ORDERABLES Performing Organization Address [facility] de Phone Number [email or web address] [address] [place] [phone] * (ABNORMAL) PTH, INTACT WITH IONIZED CALCIUM (09/08/2024 10:51 AM EST) PTH, Intact 81(H) 16 - 77 pg/mL [facility] Comment: Interpretive Guide ?Intact PTH ? Calcium ? ------- Normal Parathyroid ?Normal ? Normal Hypoparathyroidism ?Low or Low Normal ?Low Hyperparathyroidism ?? Primary ?Normal or High ? High ?? Secondary ?High ? Normal or Low ?? Tertiary ? High ? High Non-Parathyroid ?? Hypercalcemia ?Low or Low Normal ?High Calcium 9.4 8.6 - 10.4 mg/dL [facility] Calcium, Ionized 5.1 4.7 - 5.5 mg/dL [facility] Blood Blood specimen / Unknown 09/08/2024 10:51 AM EST 09/08/2024 10:52 AM EST Narrative [facility] - 09/09/2024 1:48 PM EST FASTING:YES FASTING: YES Kassandra Berry MD LAB BLOOD ORDERABLES [email or web address] [address] [place] [phone] documented in this encounter Visit Diagnoses Diagnosis Hyperparathyroidism- Primary Hyperparathyroidism, unspecified Acquired hypothyroidism Unspecified hypothyroidism H/O parathyroidectomy Stage 3b chronic kidney disease (HCC) documented in this encounter Care Teams Boom Operator Relationship Specialty Start Date End Date Kym Kenny PA Needs valid address PCP - General 08/19/24 documented as of this encounter
--- OUTSIDE RECORDS SUMMARY | 2024-09-09 15:21 | XMS_ITS | Clinical Summary ---
Author Organization [facility] Address [address] [place] [address] Care Team Providers Care Professor Of Poultry Science Name Role Phone Kym Kenny PA-C Primary Care Provider Allergies No known active allergies Medications Medication Sig Dispensed Refills Start Date End Date Status losartan (COZAAR) tablet 25 mg TAKE 1 TABLET DAILY FOR BLOOD PRESSURE AND KIDNEYS 90 tablet 3 11/08/2022 Active vitamin D3 (cholecalciferol) 10 MCG (400 UNIT) tablet Take 1 tablet (10 mcg total) by mouth daily. 0 Active rosuvastatin (CRESTOR) tablet 20 mg 0 07/18/2023 Active famotidine (PEPCID) 20 MG tablet Take 1 tablet (20 mg total) by mouth 2 (two) times a day. 180 tablet 1 11/29/2023 Active pantoprazole (PROTONIX) 40 MG tablet TAKE 1 TABLET EVERY MORNING ON AN EMPTY STOMACH 90 tablet 3 02/19/2024 Active Synthroid 125 MCG tablet TAKE 1 TABLET EVERY MORNING ON AN EMPTY STOMACH 90 tablet 3 03/29/2024 Active budesonide-formote rol (SYMBICORT) 160-4.5 MCG/ACT inhalerIndications :Gu's esophagus with dysplasia Inhale 2 inhalations into the lungs 2 (two) times a day. 3 each 3 04/09/2024 Active Jardiance 10 MG tablet 0 03/10/2024 Active albuterol 108 (90 Base) MCG/ACT inhalerIndications :Chronic cough Inhale 2 puffs into the lungs every 6 (six) hours as needed for wheezing or shortness of breath. 18 g 3 05/04/2024 Active montelukast (SINGULAIR) 10 MG tabletIndications: Chronic cough,Non-seasonal allergic rhinitis, unspecified trigger Take 1 tablet (10 mg total) by mouth daily. For allergies (in addition to Zyrtec) 90 tablet 3 05/04/2024 05/04/2025 Active benzonatate (TESSALON) 100 MG capsuleIndications :Chronic cough Take 1 capsule (100 mg total) by mouth 3 (three) times a day as needed for cough. 90 capsule 0 06/04/2024 Active Active Problems Problem Noted Date Diagnosed Date Chronic cough 11/29/2023 Gu's esophagus with dysplasia 11/29/2023 Primary snoring 11/29/2023 Elevated Lp(a) 01/13/2023 Pure hypercholesterolemia 06/20/2022 Hypercholesterolemia with LDL greater than 190 m g/dL 06/20/2022 Echocardiogram 01/05/22 02/02/2022 Overview: Normal Ascending aortic aneurysm 11/01/2021 Gastroesophageal reflux disease with esophagitis 11/01/2021 H/O mammogram 06/29/2019 Overview: 06/11/2019 mammogram Essential hypertension 06/04/2019 Class 1 obesity due to exces s calories with serious comorbidity and body mass index (BMI) of 31.0 to 31.9 in adult 01/29/2019 Stage 3 chronic kidney disease 05/12/2018 Overview: History of vesicular ureteral reflux, corrective surgery 1964; right renal atrophy due to chronic reflux uropathy History of YAMEL on Vioxx History of vesicular ureteral reflux, corrective surgery 1965; right renal atrophy due to chronic reflux uropathy History of YAMEL on Vioxx Family history of osteoporosis in mother 018 Migraine without aura and wi thout status migrainosus, not intractable 05/12/2018 Non-seasonal allergic rhinitis 05/12/2018 Hypercalcemia 04/09/2018 History of primary hyperpara thyroidism; parathyroidectomy 01/201004/09/2018 Adult hypothyroidism 04/09/2018 Osteoporosis 04/09/2018 Resolved Problems Problem Noted Date Diagnosed Date Resolved Date Coronary artery calcium scor e 2.0 (LAD) 06/201806/20/2018 07/17/2023 Immunizations Name Administration Dates Next Due Covid-19 (Moderna 12+) 100mcg/0.5mL dosage 10/26,09/28/2020 Covid-19 (Moderna 12+) Fall 2022 0.5mL Covid-19 (Pfizer 12+) Bivalent 05/08/2022 Covid-19 (Pfizer) Dilution Required 05/08/2022 Influenza Quad (Afluria) 0.2 5mL 6-35mon (SD-IIV4) 06/15/2016 Influenza Quad (Afluria/Fluz one) 0.5mL >=6mon Vial (SD-IIV4) 06/15/2016 Influenza Quad (Fluad) 0.5 m L >65Yrs (AIIV4) 07/04/2023 Influenza Quad (Fluarix/Fluz one/FluLaval) 0.5mL (SD-IIV4) 06/04/2019,05/13/2018,07/12/2015 Pneumococcal Conjugate PCV13 03/22/2017,07/08/20 14 Pneumococcal Polysaccharide PPSV23 06/22/2014, Shingrix Vaccine (Zoster Recombinant) 05/01/2022 ,08/16/2021 Tdap 07/08/2014 Zostavax (Zoster Live) 08/05/2016 Family History Medical History Relation Name Comments Heart disease Brother 1 Hypertension Brother 1 No Sig Med Hx Brother 2 Osteoarthritis Brother 3 COPD Father Smoker Diabetes Father Emphysema Father Lung cancer Father Lumbar disc disease Mother Osteoporosis Mother Asthma Son Diabetes Unknown Relation Name Status Comments Brother 1 Alive valve replaceme nt Brother 2 Alive Brother 3 Alive Father Mother Alive Son Unknown Social History Tobacco Use Types Packs/Day Years Used Date Smoking Tobacco: Former Cigarettes Passive Smoke Exposure: Current Smokeless Tobacco: Never Tobacco Cessation:Counseling Given: Yes Comments:Smoke teenager Alcohol Use Standard Drinks/Week Comments Yes 0 (1 standard drink = 0.6 oz pur e alcohol) social Sex and Gender Information Value Date Recorded Sex Assigned at Female 06/23/2018 3:57 PM EST Gender Identity Not on file Sexual Orientation Not on file Job Start Date Occupation Industry Not on file Not on file Not on file Last Filed Vital Signs Vital Sign Reading Time Taken Comments Blood Pressure 117/85 05/04/2024 2:57 PM EDT Pulse 98 05/04/2024 2:57 PM EDT Temperature 36.3 ??C (97.3 ??F) 07/17/2023 11:[address] Respiratory Rate 20 05/04/2024 2:57 PM EDT Oxygen Saturation 97% 05/04/2024 2:57 PM EDT Inhaled Oxygen Concentration - - Weight 89.8 kg (198 lb) 05/04/2024 2:57 PM EDT Height 165.1 cm (5' 5 ) 05/04/2024 2:57 PM EDT Body Mass Index 32.95 05/04/2024 2:57 PM EDT Plan of Treatment Health Maintenance Due Date Last Done Comments Pneumococcal Vaccine (3 of 3 - PPSV23 or PCV20) 03/22/2022 03/22/2017, 07/08/2014, 06/22/2014, Additional history exists BMI Counseling 07/31/2022 07/31/2021, 02/08/2020 Breast Cancer Screening (Mammogram) 07/06/2023 07/06/2021, 06/11/2019 COVID-19 Vaccine ( season) 2024 07/04/2023, 05/08/2022, 05/08/2022, Additional history exists Influenza Vaccine (#1) 2024 , 06/04/2019, 05/13/2018, Additional history exists DTap / Tdap / Td (2 - Td or Tdap) 07/08/2024 07/08/2014 Depression Screening 07/17/2024 07/17/2023, 07/06/2022, 07/31/2021, Additional history exists Fall Risk Assessment 07/17/2024 07/17/2023, 07/06/2022, 07/31/2021, Additional history exists Preventative Health Evaluation 07/17/2024 07/17/2023, 07/31/2021, 02/08/2020, Additional history exists Osteoporosis Screening (DEXA Scan) 10/29/2025 10/30/2023 RSV Adult > 60+ Yrs or (1 - 1-dose 75+ series) 2030 Colon Cancer Screening (Colonoscopy) 08/15/2032 08/15/2022, 08/09/2022, 02/11/2019 Hepatitis C Screening Completed 04/14/2020 Shingrix-Zoster Vaccine Completed 05/01/2022, 08/16 Hepatitis B Vaccines Aged Out No long er eligible based on patient's age to complete this topic RSV Ped < 20 months Aged Out No longe r eligible based on patient's age to complete this topic AbdielYnes Personal/Famil y Self 1955 [address] [place] [address] AbdielYnes Personal/Famil y Self 1955 [address] [place] [address] AbdielYnes Personal/Famil y Self 1955 [address] [place] [address] Abdiel,Ynes Jung Personal/Famil y Self 1955 [phone] (Home) [address] [place] [address] Abdiel,Ynes Jung Personal/Famil y Self 1955 [phone] (Home) [address] [place] [address] Abdiel,Ynes Jung Personal/Famil y Self 1955 [phone] (Home) [address] [place] [address] Abdiel,Ynes Jung Personal/Famil y Self 1955 [phone] (Home) [address] [facility] [address] [place] [address] Care Teams Professor Of Poultry Science Relationship Specialty Start Date End Date Kym Kenny PA-C PCP - General Hvac Design Mechanical Engineer 06/23/18
--- OUTSIDE RECORDS SUMMARY | 2024-09-09 15:21 | XMS_ITS | Encounter Summary ---
Author Organization [facility] Address [address] [place] [address] Care Team Providers Care Drapery Operator Name Role Phone Kym Kenny Primary Care Provider Encounter Details Date Type Department Care Team (Late Contact Info) Description 07/17/2024 Lab Requisition [facility] Main Lab [address] [place] [phone] Olive Alanis NP [address] [place], [place] [phone] Urinary tract infection, site not specified Social History Tobacco Use Types Packs/Day Years Used Date Smoking Tobacco: Former Smokeless Tobacco: Never Alcohol Use Standard Drinks/Week Comments Yes 0 (1 standard drink = 0.6 oz pur e alcohol) Sex and Gender Information Value Date Recorded Sex Assigned at Not on file Gender Identity Not on file Sexual Orientation Not on file documented as of this encounter Plan of Treatment Upcoming Encounters Date Type Department Care Team (Late Contact Info) Description 10/29/2024 2:30 PM EDT Office Visit Pulmonology [address] [phone] Glen Pulliam MD [address] [place] [phone] documented as of this encounter Procedures Procedure Name Priority Date/Time Associated Diagnosis Comments CULTURE URINE Routine 07/17/2024 12:00 PM EST Urinary tract infection, site not specified documented in this encounter Results * (ABNORMAL) Culture urine (07/17/2024 12:00 PM EST) Culture, Urine >100,000 CFU/mL Escherichia coli(A) EVAN 07/20/2024 10:05 AM EST [facility] Comment: The organism value for this result has been updated. These results have been appended to the previously preliminary verified report. Urine Urine specimen obtained by clean catch procedure / Unknown 07/17/2024 12:00 PM EST 07/17/2024 8:27 PM EST Narrative Organism Antibiotic Method Susceptibility Escherichia coli Ampicillin EVAN 4 ug/ml: Susceptible Escherichia coli Cefazolin EVAN 2 ug/ml: Intermediate Escherichia coli Cefepime EVAN <=0.12 ug/ml: Susceptible Escherichia coli Cefpodoxime EVAN <=0.25 ug/ml: Susceptible Escherichia coli Ceftriaxone EAVN <=0.25 ug/ml: Susceptible Escherichia coli Ciprofloxacin EVAN <=0.06 ug/ml: Susceptible Escherichia coli Piperacillin/Tazobactam EVAN <=4 ug/ml: Susceptible Escherichia coli Tobramycin EVAN <=1 ug/ml: Susceptible Escherichia coli Trimethoprim/Sulfamethoxazole EVAN <=20 ug/ml: Susceptible Escherichia coli Gentamicin EVAN <=1 ug/ml: Susceptible Escherichia coli Nitrofurantoin EVAN <=16 ug/ml: Susceptible Olive Alanis COMMERCIAL PROJECT MANAGER LAB MICROBIOLOGY - G ENERAL ORDERABLES [facility] [address] [place], [place] [phone] [place] [address] documented in this encounter Visit Diagnoses Diagnosis Urinary tract infection, site not specified documented in this encounter Care Teams Drapery Operator Relationship Specialty Start Date End Date Kym Kenny PA PCP - General Bowling Ball Weigher And Packer 06/23/18 documented as of this encounter
--- OUTSIDE RECORDS SUMMARY | 2024-09-09 15:21 | XMS_ITS | Encounter Summary ---
Author Organization [facility] Address [address] [facility] [address] [place] [address] Phone Care Team Providers Care Stream Control Officer Name Role Phone Kym Kenny Primary Care Provider Unavailabl e Reason for Visit * Reason Comments Chronic Kidney Disease Encounter Details Date Type Department Care Team (Late st Contact Info) Description 09/08/2024 2:15 PM EST Office Visit [facility] [address] [place] [phone] Sergio Robin MD [address] [facility] [address] [place] [address] Chronic kidney disease stage 3 (HCC) (Primary Dx); Essential hypertension; Other proteinuria Social History Tobacco Use Types Packs/Day Years Used Date Smoking Tobacco: Never Smokeless Tobacco: Never Alcohol Use Standard Drinks/Week Comments Yes 0 (1 standard drink = 0.6 oz pure alcohol) Alcoholic Drinks/day: Occasional social drink Comments Unknown Sex and Gender Information Value Date Recorded Sex Assigned at Not on file Legal Sex Female 5:12 PM EST Gender Identity Not on file Sexual Orientation Not on file documented as of this encounter Last Filed Vital Signs Vital Sign Reading Time Taken Comments Blood Pressure 108/75 09/08/2024 2:33 PM EST Pulse 84 09/08/2024 2:33 PM EST Temperature - - Respiratory Rate - - Oxygen Saturation - - Inhaled Oxygen Concentration - - Weight 88.5 kg (195 lb) 09/08/2024 2:33 PM EST Height - - Body Mass Index 31.47 08/11/2019 12:00 PM EST documented in this encounter Progress Notes * Sergio Robin MD - 09/08/2024 2:15 PM EST [facility] Patient Name: Adore Meadows, Female Date of : 1955, 69 y.o. Date: 09/08/2024 Referring MD: Amilcar Giordano MD PCP: Kym Kenny Reason For Visit: I had the pleasure of seeing your patient for follow up of CKD. The following portions of the patient's chart were reviewed in this encounter and updated as appropriate: Allergies Meds Problems Med Hx Surg Hx Fam Hx Constitutional: Negative for chills, fever, malaise/fatigue and weight loss. HENT: Negative for ear pain, hearing loss and tinnitus. Eyes: Negative for blurred vision, double vision, photophobia and pain. Respiratory: Negative for cough, hemoptysis, sputum production, shortness of breath and wheezing. Cardiovascular: Negative for chest pain, palpitations, orthopnea, claudication and leg swelling. Gastrointestinal: Negative for abdominal pain, diarrhea, nausea and vomiting. Genitourinary: Negative for dysuria, flank pain, frequency, hematuria and urgency. Musculoskeletal: Negative for myalgias. Skin: Negative for itching and rash. Neurological: Negative for dizziness, tingling and headaches. Psychiatric/Behavioral: Negative for depression. Full 13 point review of systems unremarkable except as noted above. Past Medical History: Diagnosis Date Hyperparathyroidism (HCC) Stage 3 chronic kidney disease Past Surgical History: Procedure Laterality Date APPENDECTOMY THYROIDECTOMY Social History Tobacco Use Smoking status: Never Smokeless tobacco: Never Substance Use Topics Alcohol use: Yes Comment: Alcoholic Drinks/day: Occasional social drink Family History Problem Relation Age of Onset Diabetes Father Current Outpatient Medications Medication Sig Dispense Refill benzonatate (TESSALON) 100 MG capsule Take 100 mg by mouth 3 (three) times a day if needed budesonide-formoterol (SYMBICORT) 160-4.5 MCG/ACT inhaler INHALE 2 PUFFS INTO THE LUNGS TWICE DAILY cholecalciferol (VITAMIN D-3) 25 MCG (1000 UT) tablet Take 2,000 Units by mouth 1 (one) time each day Empagliflozin (Jardiance) 10 MG tablet Take 10 mg by mouth 1 (one) time each day in the morning 90 tablet 3 famotidine (PEPCID) 20 MG tablet Take 1 tablet by mouth in the morning and 1 tablet in the evening. levothyroxine sodium (TIROSINT) 125 MCG capsule Take 1 tablet by mouth 1 (one) time each day losartan (COZAAR) 25 MG tablet Take 25 mg by mouth montelukast (SINGULAIR) 10 MG tablet pantoprazole (PROTONIX) 40 MG EC tablet Take 40 mg by mouth every morning rosuvastatin (CRESTOR) 10 MG tablet Take 10 mg by mouth 1 (one) time each day No current facility-administered medications for this visit. Allergies Allergen Reactions Iodinated Contrast Media Other (see comments) Objective: Vitals: 09/08/24 1433 BP: 108/75 Pulse: 84 Weight: 195 lb (88.5 kg) Vitals reviewed. Constitutional: She is oriented to person, place, and time. She does not appear ill. HEENT: Mouth/Throat: Oropharynx is clear and moist. Eyes: Pupils are equal, round, and reactive to light. Neck: No JVD present. Cardiovascular: Regular rhythm. She exhibits no edema. Pulmonary/Chest: Effort normal and breath sounds normal. Abdominal: Soft. There is no abdominal tenderness. Musculoskeletal: Normal range of motion. Neurological: She is alert and oriented to person, place, and time. Skin: Skin is warm. Psychiatric: She has a normal mood and affect. eGFR Date Value Ref Range Status 10/25/2021 49 Final eGFR Non-Afr [place] Date Value Ref Range Status 03/02/2023 39 Final Chemistry Lab Units 03/02/23 0000 12/14/22 0000 CREATININE mg/dL 1.45* 1.41* BUN mg/dL 18 29* EGFRNAFR 39 41 GLUCOSE 100 -- POTASSIUM 4.3 5.0 SODIUM 138 141 CO2 mmol/L 23 -- CHLORIDE 107.0 108.0 ALBUMIN g/dL -- 4.3 Bone Mineral Lab Units 03/02/23 0000 12/14/22 0000 CALCIUM mg/dL 9.4 9.6 No lab exists for component: SPECGRAV , GLUCOSEUR , BILIRUBINUR , RBCUR , UPROTEIN , LEUKOCYTESUR , NITRITE PLAN: Assessment & Plan 1. Chronic kidney disease stage 3 (HCC) 2. Essential hypertension 3. Other proteinuria Kidney function is stable at baseline. Scr 1.43 mg/dl on 10/09/23 and 1.45 mg/dl on . She has a history of macroscopic proteinuria UPCR 0.747 g She has chronic kidney disease due to: -diabetic kidney disease and hypertensive nephrosclerosis -residual kidney function loss from prior episode of acute kidney injury -nephron loss due to aging She has a history of hypercalcemia and is s/p parathyroidectomy in 2009. Blood pressure is close to target. She is on losartan. She is on Empagliglozin. PLAN Empagliflozin 10 mg daily RAASi Urine protein to creatinine ratio Follow kidney function and electrolytes iPTH and vit D Avoid NSAID Low sodium diet Orders Placed This Encounter Renal funtion panel urine albumin / creatinine ratio PTH, intact Vit D 25 hydroxy Empagliflozin (Jardiance) 10 MG tablet Return in 6 months (on 03/08/2025). Sergio Robin MD documented in this encounter Plan of Treatment Upcoming Encounters Date Type Department Care Team (Late st Contact Info) Description 03/09/2025 1:45 PM EDT Office Visit [facility] [address] [facility] [address] [place] [address] Sergio Robin MD [address] [facility] [address] [place] [address] Scheduled Orders Name Type Priority Associated Diagnoses Orde r Schedule Renal funtion panel Lab Routine Chronic kidney disease stage 3 (HCC) Expected: 09/08/2024, Expires: 10/06/2025 urine albumin / creatinine ratio Lab Routine Chronic kidney disease stage 3 (HCC) Expected: 09/08/2024, Expires: 10/06/2025 PTH, intact Lab Routine Chronic kidney disease stage 3 (HCC) Expected: 09/08/2024, Expires: 10/06/2025 Vit D 25 hydroxy Lab Routine Chronic kidney disease stage 3 (HCC) Expected: 09/08/2024, Expires: 10/06/2025 documented as of this encounter Visit Diagnoses Diagnosis Chronic kidney disease stage 3 (HCC)- Primary Essential hypertension Other proteinuria documented in this encounter Care Teams Stream Control Officer Relationship Specialty Start Date End Date Kym Kenny PCP - General 08/15/20 09/08/24 documented as of this encounter
--- OUTSIDE RECORDS SUMMARY | 2024-09-09 15:21 | XMS_ITS | Encounter Summary ---
Author Organization [facility] Address [address] [place] [address] Care Team Providers Care Driver Salesman Name Role Phone Kym Kenny NP Primary Care Provider Encounter Details Date Type Department Care Team (Late st Contact Info) Description 02/13/2023 Procedure Pass [facility] Radiology, [facility] ([place] Scan) [address] [place] [id number] Social History Tobacco Use Types Packs/Day Years Used Date Smoking Tobacco: Never Assessed Comments Unknown Sex and Gender Information Value Date Recorded Sex Assigned at Not on file Legal Sex Female 3:54 PM EDT Gender Identity Not on file Sexual Orientation Not on file documented as of this encounter Plan of Treatment Not on file documented as of this encounter Visit Diagnoses Not on filedocumented in this encounter Care Teams Driver Salesman Relationship Specialty Start Date End Date Kym Kenny NP [address] [place] [id number] PCP - General 02/13/23 documented as of this encounter
--- OUTSIDE RECORDS SUMMARY | 2024-09-09 15:21 | XMS_ITS | Clinical Summary ---
Author Organization [facility] Address [address] [facility] [address] [place] [address] Phone Care Team Providers Care Rotor Coil Taper Name Role Phone Kym Kenny Primary Care Provider Unavailabl e Allergies Active Allergy Reactions Criticality Noted Date Comments Iodinated Contrast Media Other (see comments) 0 04/04/2021 Medications cholecalciferol (VITAMIN D-3) 25 MCG (1000 UT) tablet Take 2,000 Units by mouth 1 (one) time each day Active levothyroxine sodium (TIROSINT) 125 MCG capsule Take 1 tablet by mouth 1 (one) time each day 06/05/2020 Active losartan (COZAAR) 25 MG tablet Take 25 mg by mouth 01/29/2019 Active rosuvastatin (CRESTOR) 10 MG tablet Take 10 mg by mouth 1 (one) time each day Active budesonide-form oterol (SYMBICORT) 160-4.5 MCG/ACT inhaler INHALE 2 PUFFS INTO THE LUNGS TWICE DAILY 11/29/2023 Active pantoprazole (PROTONIX) 40 MG EC tablet Take 40 mg by mouth every morning 02/19/2024 Active montelukast (SINGULAIR) 10 MG tablet 12/11/2023 Active famotidine (PEPCID) 20 MG tablet Take 1 tablet by mouth in the morning and 1 tablet in the evening. 11/29/2023 Active benzonatate (TESSALON) 100 MG capsule Take 100 mg by mouth 3 (three) times a day if needed 11/29/2023 Active Empagliflozin (Jardiance) 10 MG tablet Take 10 mg by mouth 1 (one) time each day in the morning 90 tablet 3 09/08/2024 Active Active Problems Problem Noted Date Diagnosed Date Elevated Lipoprotein(a) 01/13/2023 03/05/20 23 Pure hypercholesterolemia 06/20/20222022 Laryngopharyngeal reflux 11/01/2021 023 Aneurysm of ascending aorta 11/01/2021 0808/2022 Hypercalcemia 09/18/2021 Hypertensive heart disease without heart failure 09/18/2021 History of procedure 06/29/2019 Overview (05/05/2024): 06/11/2019 mammogram Replacing diagnoses that were inactivated after the 05/05/24 Regulatory Import Essential hypertension 06/04/2019 Obesity caused by energy imbalance 01/29/2019 Calcification of coronary artery 06/20/2018 Chronic kidney disease stage 3 05/12/2018 Overview (09/18/2021): History of vesicular ureteral reflux, corrective surgery 1964; right renal atrophy due to chronic reflux uropathy History of YAMEL on Vioxx Family history of osteoporosis 05/12/2018 Migraine without aura, not refractory 05/12/2018 Seasonal allergic rhinitis 05/12/2018 History of primary hyperparathyroidism 8 Hypothyroidism 04/09/2018 Osteoporosis 04/09/2018 Encounters Date Type Department Care Team Description 09/08/2024 2:15 PM EST Office Visit [facility] [address] [place] [phone] Sergio Robin MD Chronic kidney disease stage 3 (HCC) (Primary Dx); Essential hypertension; Other proteinuria from Last 3 Months Immunizations Name Administration Dates Next Due Influenza Vaccine, Quadrival ent, Adjuvanted 07/04/2023 Influenza, Quadrivalent, Pf, Pediatrics 06/15/2016 Influenza, Quadrivalent, Pre servative Free 06/04/2019,05/13/2018,06/15/2016,07/12 Moderna SARS-COV-2 07/04/2023,10/26/2020, 021 Pfizer SARS-COV-2 05/08/2022 Pneumococcal Conjugate 13-Valent 03/22/2017,1211/2013 Pneumococcal Polysaccharide 06/22/2014, 3 Shingrix 05/01/2022,08/16/2021 Tdap 07/08/2014 Zoster 08/05/2016 Family History Medical History Relation Comments Diabetes Father Relation Status Comments Father Mother Alive Social History Tobacco Use Types Packs/Day Years Used Date Smoking Tobacco: Never Smokeless Tobacco: Never Tobacco Cessation:Counseling Given: No Alcohol Use Standard Drinks/Week Comments Yes 0 (1 standard drink = 0.6 oz pure alcohol) Alcoholic Drinks/day: Occasional social drink Comments Unknown Sex and Gender Information Value Date Recorded Sex Assigned at Not on file Legal Sex Female 5:12 PM EST Gender Identity Not on file Sexual Orientation Not on file Last Filed Vital Signs Vital Sign Reading Time Taken Comments Blood Pressure 108/75 09/08/2024 2:33 PM EST Pulse 84 09/08/2024 2:33 PM EST Temperature - - Respiratory Rate - - Oxygen Saturation 98% 10/01/2023 2:01 PM EST Inhaled Oxygen Concentration - - Weight 88.5 kg (195 lb) 09/08/2024 2:33 PM EST Height 167.6 cm (5' 6 ) 08/11/2019 12:00 PM EST Body Mass Index 31.47 08/11/2019 12:00 PM EST Plan of Treatment Upcoming Encounters Date Type Department Care Team (Late st Contact Info) Description 03/09/2025 1:45 PM EDT Office Visit [facility] [address] [facility] [address] [place] [phone] Sergio Robin MD [address] [facility] [address] [place] [address] Health Maintenance Due Date Last Done Comments Breast Cancer Screening 1955 Colorectal Cancer Screening: Annual FOBT 02/26/2004 Colorectal Cancer Screening: Colonoscopy 02/26/2004 Colorectal Cancer Screening: Sigmoidoscopy 02/26/2004 Pneumococcal Vaccine: 65+ Years (4 of 4 - PPSV23 or PCV20) 02/26/2020 03/22/2017, 07/08/2014, 06/22/2014, Additional history exists Influenza Vaccine (#1) 2024 3, 06/04/2019, 05/13/2018, Additional history exists Hepatitis B Vaccine Aged Out No longe r eligible based on patient's age to complete this topic Insurance MEDICARE [facility] MEDICARE [facility] Care Teams Rotor Coil Taper Relationship Specialty Start Date End Date Kym Kenny PCP - General Physician Cash Register Operator 09/09/24
--- OUTSIDE RECORDS SUMMARY | 2024-09-09 15:21 | XMS_ITS | Clinical Summary ---
Author Organization [email or web address] [facility] Address [address] [place] [address] Care Team Providers Care Ecological Risk Assessor Name Role Phone Kym Kenny NP Primary Care Provider [phone] Allergies No known active allergies Social History Tobacco Use Types Packs/Day Years Used Date Smoking Tobacco: Never Assessed Comments Unknown Sex and Gender Information Value Date Recorded Sex Assigned at Not on file Legal Sex Female 3:54 PM EDT Gender Identity Not on file Sexual Orientation Not on file Last Filed Vital Signs Vital Sign Reading Time Taken Comments Blood Pressure 159/99 02/13/2023 4:02 PM EDT Pulse 92 02/13/2023 4:02 PM EDT Temperature 37.1 ??C (98.7 ??F) 02/13/2023 4:02 PM ED T Respiratory Rate 18 02/13/2023 4:02 PM EDT Oxygen Saturation 100% 02/13/2023 4:02 PM EDT Inhaled Oxygen Concentration - - Weight 98.1 kg (216 lb 4.3 oz) 02/13/2023 4:02 P M EDT Height - - Body Mass Index - - Plan of Treatment Health Maintenance Due Date Last Done Comments CT Colonography 1955 Colonoscopy 1955 Colorectal Cancer Screening 1955 FIT-DNA 1955 FIT 1955 FOBT 1955 Hepatitis C Screening 1955 Mammogram 1955 Sigmoidoscopy 1955 Medicare Annual Wellness Visit 01/30/2020 01/29/2019 Fall Risk Screening 02/26/2020 Pneumococcal Vaccine: 50+ Years (3 of 3 - PCV20 or PCV21) 03/22/2022 03/22/2017, 07/08/2014, 06/22/2014, Additional history exists COVID-19 Vaccine (4 - season) 2024 05/08/2022, 10/26/2020, 09/28/2020 Influenza Vaccine (#1) 2024 9, 05/13/2018, 06/15/2016, Additional history exists Tdap and Td Vaccines Adult 07/08/2024 07/08/2014 RSV 60+ (1 - 1-dose 75+ series) 2030 Zoster Vaccines Completed 05/01/2022, 08/05, 08/05/2016 HIB Vaccines Aged Out No longer eligi ble based on patient's age to complete this topic HPV Vaccines Aged Out No longer eligi ble based on patient's age to complete this topic Hepatitis A Vaccines Aged Out No long er eligible based on patient's age to complete this topic IPV Vaccines Aged Out No longer eligi ble based on patient's age to complete this topic Lipid Panel Discontinued Meningococcal Vaccine Aged Out No aliyah manjula eligible based on patient's age to complete this topic Osteoporosis Screening Discontinued RSV <20 Months Aged Out No longer ce gible based on patient's age to complete this topic Insurance MEDICARE [facility] Care Teams Ecological Risk Assessor Relationship Specialty Start Date End Date Kym Kenny NP [address] [address] PCP - General 02/13/23
--- OUTSIDE RECORDS SUMMARY | 2024-09-09 15:21 | XMS_ITS | Clinical Summary ---
Author Organization [facility] Address [address] [place] [address] Phone Care Team Providers Care Crisis Worker Name Role Phone Kym Kenny Primary Care Provider [phone] Allergies No known active allergies Medications Medication Sig Dispensed Refills Start Date End Date Status albuterol HFA (PROAIR HFA ; PROVENTIL HFA ; VENTOLIN HFA) 90 mcg/actuation inhaler Inhale 2 puffs by mouth every 6 hours as needed for wheezing or shortness of breath. 05/04/2024 Active benzonatate (TESSALON) 100 mg capsule Take 1 capsule (100 mg total) by mouth 3 times daily as needed for cough. 11/29/2023 Active budesonide-formotero L (SYMBICORT) 160-4.5 mcg/actuation inhaler Inhale 2 puffs by mouth 2 (two) times a day. 11/29/2023 Active famotidine (PEPCID) 20 mg tablet Take 1 tablet (20 mg total) by mouth 2 (two) times a day. 11/29/2023 Active empagliflozin (Jardiance) 10 mg tablet 03/10/2024 Active losartan (COZAAR) 25 mg tablet Take 1 tablet (25 mg total) by mouth 1 (one) time each day. FOR BLOOD PRESSURE AND KIDNEYS 11/08/2022 Active montelukast (SINGULAIR) 10 mg tablet Take 1 tablet (10 mg total) by mouth 1 (one) time each day if needed. For allergies (in addition to Zyrtec) - 12/11/2023 05/04/2025 Active pantoprazole (PROTONIX) 40 mg EC tablet Take 1 tablet (40 mg total) by mouth 1 (one) time each day in the morning. ON AN EMPTY STOMACH 02/19/2024 Active rosuvastatin (CRESTOR) 20 mg tablet 07/18/2023 Active levothyroxine (Synthroid) 125 mcg tablet Take 1 tablet (125 mcg total) by mouth 1 (one) time each day in the morning. ON AN EMPTY STOMACH 03/29/2024 Active cholecalciferol (VITAMIN D-3) 10 mcg (400 unit) tablet Take 1 tablet (400 Units total) by mouth 1 (one) time each day. Active Active Problems Problem Noted Date Diagnosed Date Hypercholesterolemia with LDL greater than 190 m g/dL 07/07/2024 Class 1 obesity due to exces s calories with serious comorbidity and body mass index (BMI) of 31.0 to 31.9 in adult 07/07/2024 Gu's esophagus with dysplasia 11/29/2023 Chronic cough 11/29/2023 Primary snoring 11/29/2023 Elevated Lp(a) 01/13/2023 Pure hypercholesterolemia 06/20/2022 Ascending aortic aneurysm 11/01/2021 Gastroesophageal reflux disease with esophagitis 11/01/2021 Essential hypertension 06/04/2019 Migraine 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 History of YAMEL on Vioxx Adult hypothyroidism 04/09/2018 Hypercalcemia 04/09/2018 Osteoporosis 04/09/2018 Encounters Date Type Department Care Team Description 07/17/2024 Lab Requisition [facility] Lab [address] [place] [address] Olive Alanis NP Urinary tract infection, site not specified from Last 3 Months Immunizations Name Administration Dates Next Due COVID-19 (Moderna/Spikevax) 12yo and older 07/04 Influenza Quadravalent, 0.5m l (Fluad) 65yo and older 07/04/2023 Influenza Quadravalent, 0.5m l (Fluzone High-dose) 65yo and older 08/16/2021 Influenza Quadrivalent, 0.5m l, preservative free (Fluarix; FluLaval; Fluzone) ages 6mo and older (Afluria) 3yo and older 06/04/2019,05/13/2018,07/12/2015 Influenza Quadrivalent, with preservative (Fluzone; Afluria) 6mo and older 06/15/2016 Pfizer SARS-CoV-2 COVID-19, mRNA, LNP-S, preservative free 05/08/2022 Pneumococcal conjugate 13 va lent (Prevnar 13, PCV13) 2mo and older 03/22/2017,07/08/2014 Pneumococcal polysaccharide 23 valent (Pneumovax 23) 2yo and older 06/22/2014,06/29/2013 Tdap Tetanus diptheria acell ular pertussis (Boostrix; Adacel) 7yo and older 07/08/2014 Zoster Live 08/05/2016 Zoster recombinant (Shingrix ) 19yo and older 05/01/2022,08/16/2021 Surgical History Surgery Date Site/Laterality Comments APPENDECTOMY 08/05/2009 PROCEDURE:APPENDECTOMY PARATHYROIDECTOMY 08/05/2009 PROCEDURE:PARATHYROIDECTOMY CHOLECYSTECTOMY 08/05/2001 PROCEDURE:CHOLECYSTECTOMY KIDNEY SURGERY 08/05/1964 PROCEDURE:KIDNEY SURGERY PARATHYROIDECTOMY PROCEDURE:PARATHYROIDECTOMY Medical History Medical History Date Comments HLD (hyperlipidemia) DX:HLD (hyp erlipidemia);COMMENT:not on meds yet History of ETT DX:History of ET T;COMMENT:in 6 months 2014 CKD (chronic kidney disease) DX: CKD (chronic kidney disease);COMMENT:dr yost; cr=1.4; gina small kidney Chronic headache DX:Chronic head ache Obesity DX:Obesity Dyspnea DX:Dyspnea Hypothyroidism DX:Hypothyroidis m H/O mammogram 06/29/2019 DX:H/O mammogram ;COMMENT:06/11/2019 mammogram Hypertension DX:Hypertension Allergic rhinitis DX:Allergic rh initis Family History Medical History Relation Name Comments Heart disease Brother 1 Hypertension Brother 1 No Known Problems Brother 2 Osteoarthritis Brother 3 COPD Father Smoker Diabetes Father Emphysema Father Lung cancer Father Lumbar disc disease Mother Osteoporosis Mother Diabetes Other Asthma Son Relation Name Status Comments Brother 1 Alive valve replaceme nt Brother 2 Alive Brother 3 Alive Father Mother Alive Other Son Social History Tobacco Use Types Packs/Day Years Used Date Smoking Tobacco: Former Smokeless Tobacco: Never Alcohol Use Standard Drinks/Week Comments Yes 0 (1 standard drink = 0.6 oz pur e alcohol) Sex and Gender Information Value Date Recorded Sex Assigned at Not on file Gender Identity Not on file Sexual Orientation Not on file Obstetrics History Last Filed Vital Signs Vital Sign Reading Time Taken Comments Blood Pressure 120/88 02/27/2024 4:01 PM EDT Pulse 98 02/27/2024 4:01 PM EDT Temperature - - Respiratory Rate - - Oxygen Saturation - - Inhaled Oxygen Concentration - - Weight 88.5 kg (195 lb) 02/27/2024 4:01 PM EDT Height 165.1 cm (5' 5 ) 02/27/2024 4:01 PM EDT Body Mass Index 32.45 02/27/2024 4:01 PM EDT Plan of Treatment Upcoming Encounters Date Type Department Care Team (Late st Contact Info) Description 10/29/2024 2:30 PM EDT Office Visit Pulmonology - [place] [address] [place] [phone] Glen Pulliam MD [address] [place] [address] Health Maintenance Due Date Last Done Comments Breast Cancer Screening 1955 RSV Immunization Patients 60+ Years Old (1 - Risk 60-74 years 1-dose series) 2015 Pneumococcal Vaccine: 65+ Years (3 of 3 - PPSV23 or PCV20) 03/22/2022 03/22/2017, 07/08/2014, 06/22/2014, Additional history exists Medicare Annual Wellness Visit 07/13/2022 Social Influencers of Health Screening 07/13/2022 COVID-19 Vaccine ( season) 2024 07/04/2023, 05/08/2022, 10/26/2020, Additional history exists Influenza Vaccine (#1) 2024 3, 05/21/2022, 08/16/2021, Additional history exists DTaP,Tdap,and Td Vaccines (2 - Td or Tdap) 07/08/2024 07/08/2014 Depression Screening 07/17/2024 07/17/2023 Falls Risk Assessment 07/17/2024 07/17/2023 Hypertension/CHF/CAD Annual BMP Blood Test 10/08/2024 10/09/2023 Cholesterol Screening (Lipid Panel) 10/08/2028 10/09/2023 Colorectal Cancer Screening: Colonoscopy 08/15/2032 08/15/2022 Osteoporosis Screening (Bone Density Screening) 10/29/2033 10/30/2023 Hepatitis C Screening Completed 04/15/2020 Zoster Vaccines Completed 05/01/2022, 08/05, 08/05/2016 HIB Vaccines Aged Out No longer eligi ble based on patient's age to complete this topic HPV Vaccines Aged Out No longer eligi ble based on patient's age to complete this topic Hepatitis A Vaccines Aged Out No long er eligible based on patient's age to complete this topic Hepatitis B Vaccines Aged Out No long er eligible based on patient's age to complete this topic IPV Vaccines Aged Out No longer eligi ble based on patient's age to complete this topic MMR Vaccines Aged Out No longer eligi ble based on patient's age to complete this topic Meningococcal ACWY Vaccine Aged Out N o longer eligible based on patient's age to complete this topic RSV Immunization Patients Under 20 months Aged Out No longer eligible based on patient's age to complete this topic Varicella Vaccines Aged Out No longer eligible based on patient's age to complete this topic Procedures Procedure Name Priority Date/Time Associated Diagnosis Comments CULTURE URINE Routine 07/17/2024 12:00 PM EST Urinary tract infection, site not specified BONE DENSITY STUDY Routine 10/30/2023 2: 39 PM EDT Encounter for screening for osteoporosis ANNUAL BMP BLOOD TEST Routine 10/09/2023 LIPID PANEL Routine 10/09/2023 DEPRESSION SCREENING Routine 07/17/2023 FALLS RISK ASSESSMENT Routine 07/17/2023 COLONOSCOPY Routine 08/15/2022 HEPATITIS C SCREENING Routine 04/15/2020 from Last 3 Months or Most Recently Relevant to Health Maintenance Results * (ABNORMAL) Culture urine (07/17/2024 12:00 PM EST) Culture, Urine >100,000 CFU/mL Escherichia coli(A) EVAN 07/20/2024 10:05 AM EST [facility] Comment: The organism value for [...] EVAN <=0.25 ug/ml: Susceptible Escherichia coli Ceftriaxone EVAN <=0.25 ug/ml: Susceptible Escherichia coli Ciprofloxacin EVAN <=0.06 ug/ml: Susceptible Escherichia coli Piperacillin/Tazobactam EVAN <=4 ug/ml: Susceptible Escherichia coli Tobramycin EVAN <=1 ug/ml: Susceptible Escherichia coli Trimethoprim/Sulfamethoxazole EVAN <=20 ug/ml: Susceptible Escherichia coli Gentamicin EVAN <=1 ug/ml: Susceptible Escherichia coli Nitrofurantoin EVAN <=16 ug/ml: Susceptible Olive Alanis NP LAB MICROBIOLOGY - G ENERAL ORDERABLES [facility] [address] [place] [address], * BONE DENSITY STUDY (10/30/2023 2:39 PM EDT) Anatomical Region Laterality Modality Bone Densitometr y 10/16/2023 11:5 6 AM EDT Narrative 10/31/2023 4:15 PM EDT Bone density study Indication and risk factors: Postmenopausal female. ??Screening for osteoporosis. ??No priors. Study acquired on a [employer] densitometer. Imaging of the lumbar spine, left forearm and hip was completed. FINDINGS: LUMBAR SPINE Averaged L1 through L4: Bone density: 1.08 g/cm2 Z score: 0.1 T score: -0.9 LEFT HIP Left femoral neck: Bone density: 0.89 g/cm2 Z score: 0.1 T score: -1.0 LEFT FOREARM Left radius 33%: Bone density: 0.92 g/cm2 Z score: 2.2 T score: 0.5 CONCLUSION: 1. ??Bone density measures within normal limits. SESSION: Not applicable World Health Organization Definitions of Osteoporosis: T score at or below -1.0: Normal BMD T score between -1.0 and -2.5: Osteopenia T score at or below -2.5: Osteoporosis DEXA guidelines: Diagnosis : Treatment : Follow-up DEXA Normal BMD : Prevention : 2-3 years Osteopenia : Prevention/therapy :1-2 years Osteoporosis : Therapy : Yearly Report reviewed and signed by : Dr. Betty Vaz on 10/31/2023 4:15 PM. Workstation Name - [email or web address] Procedure Note Betty Vaz MD - 03/23/2024 Bone density study Indication and risk factors: Postmenopausal female. Screening forosteoporosis. No priors. Study acquired on a [employer] densitometer. Imaging of thelumbar spine, left forearm and hip was completed. FINDINGS: LUMBAR SPINE Averaged L1 through L4: Bone density: 1.08 g/cm2 Z score: 0.1 T score: -0.9 LEFT HIP Left femoral neck: Bone density: 0.89 g/cm2 Z score: 0.1 T score: -1.0 LEFT FOREARM Left radius 33%: Bone density: 0.92 g/cm2 Z score: 2.2 T score: 0.5 CONCLUSION: 1. Bone density measures within normal limits. SESSION: Not applicable World Health Organization Definitions of Osteoporosis: T score at or below -1.0: Normal BMD T score between -1.0 and -2.5: Osteopenia T score at or below -2.5: Osteoporosis DEXA guidelines: Diagnosis : Treatment : Follow-up DEXA Normal BMD : Prevention : 2-3 years Osteopenia : Prevention/therapy :1-2 years Osteoporosis : Therapy : Yearly Report reviewed and signed by : Dr. Betty Vaz on 10/31/2023 4:15 PM.Workstation Name - [email or web address]- Kym GEORGE IMG DXA PROCEDURES * Annual BMP Blood Test (10/09/2023) [facility] Annual BMP Blood Test abstracted Historical Provider [facility] [employer] * Lipid panel (10/09/2023) [facility] LDL/HDL Ratio 2 5 Triglycerides 102 150 mg/dL Cholesterol 148 200 mg/dL HDL 67 50 mg/dL LDL Cholesterol 62 mg/dL Blood Venous blood specimen / Unknown Historical Provider LAB BLOOD ORDERAB LES * Falls Risk Assessment (07/17/2023) [facility] Falls Risk Assessment abstracted Historical [facility] * Depression Screening (07/17/2023) [facility] Depression Screening abstracted [facility] Provider [facility] [employer] [facility] * Colonoscopy (08/15/2022) [facility] Colonoscopy no interpretation , abstracted Anatomical Region Laterality Modality Other [facility] Provider [facility] * Hepatitis C Screening (04/15/2020) [facility] Hepatitis C Screening abstracted [facility] Provider [facility] E from Last 3 Months or Most Recently Relevant to Health Maintenance Care Teams Crisis Worker Relationship Specialty Start Date End Date Kym Kenny PA PCP - General Road Equipment Operator 06/23/18
--- OUTSIDE RECORDS SUMMARY | 2024-09-09 15:22 | XMS_ITS | Encounter Summary ---
Author Organization [facility] Address [address] [place] [address] Care Team Providers Care Felt Pad Cutter Name Role Phone Kym Kenny Primary Care Provider [phone] Encounter Details Date Type Department Care Team (Late st Contact Info) Description 08/28/2024 Orders Only [facility] Endocrinology [address] [phone] Endocrinology, Scan Social History Tobacco Use Types Packs/Day Years Used Date Smoking Tobacco: Never Passive Smoke Exposure: Never Smokeless Tobacco: Never Alcohol Use Standard [...] Description 08/18/2025 3:15 PM EST Office Visit [facility] Endocrinology [address] [address] Kassandra Berry MD [address] [place] [address] documented as of this encounter Procedures Procedure Name Priority Date/Time Associated Diagnosis Comments LAB RESULT Routine 07/15/2024 10:18 AM EST documented in this encounter Results * LAB RESULT (07/15/2024 10:18 AM EST) Scan Endocrinology HX AMB PROCEDURES documented in this encounter Visit Diagnoses Not on filedocumented in this encounter Care Teams Felt Pad Cutter Relationship Specialty Start Date End Date Kym Kenny PA Needs valid address PCP - General 08/19/24 documented as of this encounter
--- OUTSIDE RECORDS SUMMARY | 2024-09-09 15:22 | XMS_ITS | Encounter Summary ---
Author Organization [facility] Address [address] [place] [address] Care Team Providers Care Door Tender Name Role Phone Kym Kenny Primary Care Provider [phone] Encounter Details Date Type Department Care Team (Late st Contact Info) Description 08/19/2024 Orders Only [facility] [address] [place] [address] Primary Care, Scan Social History Tobacco Use Types Packs/Day [...] Description 08/18/2025 3:15 PM EST Office Visit [facility] Endocrinology [address] [place] [address] Kassandra Berry MD [address] [place] [address] [address] [place] [address] documented as of this encounter Procedures Procedure Name Priority Date/Time Associated Diagnosis Comments LAB RESULT Routine 07/15/2024 11:36 AM EST documented in this encounter Results * LAB RESULT (07/15/2024 11:36 AM EST) Scan Primary Care HX AMB PROCEDURES documented in this encounter Visit Diagnoses Not on filedocumented in this encounter Care Teams Door Tender Relationship Specialty Start Date End Date Kym Kenny PA Needs valid address PCP - General 08/19/24 documented as of this encounter
--- OUTSIDE RECORDS SUMMARY | 2024-09-09 15:22 | XMS_ITS | Data Portability ---
Author Organization [employer], [employer] [place] [employer] [facility] Address [address] [place] [address] Assessment Encounter Date Assessment Date Assessment LastModified by Organization Details LastModified Time 09/03/2024 09/03/2024 [facility] Colonoscopy age 47 normal, Cologuard 08/2022 repeat 08/2025 Mammogram yearly Pap per [facility] Tdap due; Shingrix done 2021, PPSV23 2013, PCV13 2016; recommend RSV, PCV 21 BMD per endocrinology ASCVD risk see below LDCT never smoker ( is a smoker) Hepatitis C screen 2019, negative Hepatitis B screen next labs Medicare annual wellness 09/03/2024 Chronic dermatitis Eczema +/- psoriasis? clobetasol ointment 0.05% twice daily as needed 2 weeks on 2 weeks off do not use on face 30 g no refill Derm consult LBP, B SI pain chronic unchanged for years Most consistent with neurogenic claudication No radicular pain or weakness Options reviewed PT order Live Every Day Xray orders RA MRI/orthopedics if not better Intermittent L ear fullness without associated symptoms Normal exam ?eustachian tube dysfunction? Trial Flonase x 1m ENT INB Hypothyroidism History of primary hyperparathyroidism status post parathyroidectomy 2009 History of osteoporosis/osteopen ia Followed by endocrinology Hyperlipidemia Elevated LP(a) ASCVD risk equivalent of CKD CAC score 59 (2022) Resume rosuvastatin 20 daily TLC Obesity Continue diet exercise Medication discussion at future visit Minimally dilated ascending aorta on CAC score 2017, unchanged CAC score 2022 Mild diastolic dysfunction on echo 2023 otherwise normal Continue control of blood pressure, vascular risk factors Hypertensive CKD Stage IIIa Follow-up ongoing with nephrology Chronic cough See details in epic note 10/16/2023 Better with the addition of montelukast Continue ongoing follow-up with pulmonary The patient is advised to follow up for any symptom recurrence or concerns, continue with prescribed medication adjustments, and adhere to the recommended management plans for each condition. [email or web address] Not available 09/06/2024 21:19:18 Plan of Treatment Reminders Order Date Submit Date Provider Last Modified By Organization Details Last Modified Time Details Appointments LAB WORK 2025 10:00A M Nurse Not available Not available Not available PHYSICAL 2025 02:30P M DORIS Smith Not available Not available Not available Lab None recorded . Referral None recorded . Procedures None recorded . Surgeries None recorded . Imaging None recorded . Medication Orders clobetas ol 0.05 % topical ointment 2024 025 [facility] #[id number], [address] [place], [place], [id number], 09/03/2024 15:56:47 Patient TargetsNo targets recorded. Patient InstructionsNo instructions recorded. Reason for Referral None Reported. Problems Name Problem SNOMED Code Status Onset Date Resolution Date Notes Provider Name and Address Organization Details Recorded Time Chronic low back pain 202832662 Active 2024 DORIS Smith [address] [place] [address],[place], [address] , [facility] 21:20:15 Acquired hypothyroi dism 703264930 Active 2024 DORIS Smith [address] [place] [address],[place], [address] , [facility] 21:20:17 Osteoporos is 66209206 Active 2024 DORIS Smith [address] [place] [address],[place], [address] , [facility] 21:20:18 Osteopenia 584200961 Active 2024 DORIS Smith [address] [place] [address],[place], [address] , [facility] 21:20:24 History of primary hyperparat hyroidism 7861377160289 6 Active 2024 DORIS Smith [address], [place], [address] , [place] [facility] 21:20:25 Hyperlipid emia 38772511 Active 2024 DORIS Smith [address], [place], [address] , [place] [facility] 21:20:26 Lipoprotei n above reference range 172959131 Active 2024 DORIS Smith [address], [place], [address] , [place] [facility] 21:20:27 Calcificat ion of coronary artery 902374975 Active 2024 DORIS Smith [address], [place], [address] , [place] [facility] 21:20:30 Body mass index 30+ - obesity 884210132 Active 2024 DORIS Smith [address], [place], [address] , [place] [facility] 21:20:39 Ascending aorta dilatation 839838398 Active 2024 DORIS Smith [address], [place], [address] , [place] [facility] 21:20:40 Chronic kidney disease stage 3A 331021391 Active 2024 DORIS Smith [address], [place], [address] , [place] [facility] 21:20:42 Diastolic dysfunctio n 1890584 Active 2024 DORIS Smith [address], [place], [address] , [place] [facility] 21:20:43 Chronic cough 38545517 Active 2024 DORIS Smith [address], [place], [address] , [facility] 5 21:20:44 Problem Notes None recorded. Medical Equipment None Reported. Allergies No known drug allergies Medications Name Sig Start Date Stop Date Status Note LastModified by Organization Details LastModified Time Synthroid 125 mcg tablet active Not Available Not Available Not Available famotidine 20 mg tablet active Not Available Not Available Not Available benzonatate 100 mg capsule active Not Available Not Available Not Available cephalexin 500 mg capsule TAKE 1 CAPSULE BY MOUTH TWICE DAILY FOR 7 DAYS 09/03 completed Not Available Not Available Not Available pantoprazol e 40 mg tablet,caryn yed release active Not Available Not Available Not Available losartan 25 mg tablet Take 1 tablet every day by oral route. active Not Available Not Available No t Available montelukast 10 mg tablet active Not Available Not Available Not Available clobetasol 0.05 % topical ointment APPLY A THIN LAYER TO THE AFFECTED AREA(S) BY TOPICAL ROUTE 2 TIMES PER DAY; not on face; 2 weeks on/2 weeks off 2024 active Not Available Not Available Not Avai lable albuterol sulfate HFA 90 mcg/actuati on aerosol inhaler active Not Available Not Available Not Available rosuvastati n 20 mg tablet Take 1 tablet every day by oral route. active Not Available Not Available No t Available nitrofurant oin monohydrate /macrocryst als 100 mg capsule TAKE 1 CAPSULE BY MOUTH EVERY 12 HOURS FOR 7 DAYS 09/03 completed Not Available Not Available Not Available budesonide- formoterol HFA 160 mcg-4.5 mcg/actuati on aerosol inhaler INHALE 2 PUFFS INTO THE LUNGS TWICE DAILY active Not Available Not Available No t Available Jardiance 10 mg tablet 09/03 completed Not Available Not Available Not Available Vitals Date Recorded Body weight Body mass index (BMI) Body height Oxygen saturation Oxygen saturation in Arterial blood by Pulse oximetry Heart rate Systolic blood pressure Diastolic blood pressure Provider Name and Address Organization Details Last Updated DateTime 5 86827.2 3 g 32 kg/m2 166.37 cm 97 % 97 % 90 /min 133 mm[Hg] 80 mm[Hg] Maral Gillespie Man [facility] 5 16:04:55 Social History None recorded. Functional Status None recorded. Mental Status None recorded. Family History Nothing Reported. Medical History No medical history recorded. Gynecological HistoryNo gynecological history recorded. Obstetrics History GPAL:G 0 P 0 0 0 0 Past Encounters Encounter ID Performer Location Encounter Start Date Encounter Closed Date Diagnosis/Indication Diagnosis SNOMED-CT Code Diagnosis ICD10 Code Diagnosis Note [id number] DORIS Smith [id number] [address] [place] [address] 09/03/2024 14:18:54 09/06/2024 21:21:28 Active or passive immunization 245910740 Z23 Adult heal th examination 030592130 Z00.01 Chronic dermatitis 77569 007 L30.9 Hepatitis B screening required 971976962 Z76.89 Chronic low back pain 27 0278211 M54.50 Otalgia of left ear 1010 452588 H92.02 Acquired hypothyroidism 550991646 E03.9 Osteoporosis 38683093 M8 1.0 Osteopenia 602323740 M85 .80 History of primary hyperparathyroidism 4190315720 9106 Z86.39 Hyperlipidemia 47527337 E78.5 Lipoprotei n above reference range 520933817 E78.41 Calcificat ion of coronary artery 562280451 I25.84 Body mass index 30+ - obesity 996398073 Z68.32 Ascending aorta dilatation 566678210 I77.810 Chronic ki dney disease stage 3A 292282710 N18.31 Diastolic dysfunction 35 28899 I51.9 Chronic cough 41900815 R 05.3 Health Concerns Section Related Observation LastModified by Organization Detai ls LastModified Time None Recorded Concern Status LastModified by Organization Details LastModified Time None Recorded Advance Directives Directive None Recorded Payers Encounter Date Sequence Insurance Name Policy Number Policy Harvey Covered Member ID Harvey Member ID Guarantor Name 09/03/2024 2 [employer] - FOR LIFE (MEDICARE SUPPLEMENT) [place] [id number] [place] 09/03/2024 1 MEDICARE B-CT: NGS [place] [id number] [employer] Notes Date Note Type Note Provider Name and Address Organization Details Recorded Time text/html CPXMarriedRetired Past surgical history Lap maria c 2002 Bladder/kidney surgery 1965Abdominal laparotomy for perforated appendix/abscess, subsequent ureteral stent for ureteral injury 2010Parathyroidectomy in 2009 Family historyFather 90 COPD lung cancerMother osteoporosis MCIBrother healthyBrother osteoarthritisBrother rheumaticSon healthyDaughter recurrent infections valvular heart disease DORIS Smith [address] [place] [address], [place], [address], [facility] - [facility] 09/06/2024 21:21:27 OBGyn Episode No OBEpisode recorded.
--- OUTSIDE RECORDS SUMMARY | 2024-09-09 15:22 | XMS_ITS | Encounter Summary ---
Author Organization [facility] Address [address] [place] [address] Care Team Providers Care Recreation Facility Attendant Name Role Phone Kym Kenny Primary Care Provider [phone] Encounter Details Date Type Department Care Team (Latest Contact Info) Description 08/19/2024 Travel Social History Tobacco Use Types Packs/Day Years [...] Description 08/18/2025 3:15 PM EST Office Visit [facility] [place] [address] [facility] [address] [place] [address] Kassandra Berry MD [address] [facility] [address] [place] [address] documented as of this encounter Visit Diagnoses Not on filedocumented in this encounter Care Teams Recreation Facility Attendant Relationship Specialty Start Date End Date Kym Kenny PA Needs valid address PCP - General 08/19/24 documented as of this encounter
--- OUTSIDE RECORDS SUMMARY | 2024-09-09 15:22 | XMS_ITS | Encounter Summary ---
Author Organization [address] [address] Care Team Providers Care [employer] Business Manager Name Role Phone Kym Kenny Primary Care Provider [phone] Encounter Details Date Type Department Care Team (Late st Contact Info) Description 08/20/2024 Telephone [facility] Endocrinology [address] [address] Kassandra Berry MD [address] [place] [address] Social History Tobacco Use Types Packs/Day Years [...] on file documented as of this encounter Miscellaneous Notes * Telephone Encounter - Christal Marin MA - 08/20/2024 1:31 PM EST Left message for her to call back for results documented in this encounter Plan of Treatment Upcoming Encounters Date Type Department Care Team (Late st Contact Info) Description 08/18/2025 3:15 PM EST Office Visit [facility] Endocrinology [address] [place] [address] Kassandra Berry MD [address] [place] [address] [place] [address] documented as of this encounter Visit Diagnoses Not on filedocumented in this encounter Care Teams [employer] Business Manager Relationship Specialty Start Date End Date Kym Kenny PA Needs valid address PCP - General 08/19/24 documented as of this encounter
--- OUTSIDE RECORDS SUMMARY | 2024-09-09 15:22 | XMS_ITS | Data Portability ---
Author Organization [place] - [employer]lvaro english, [facility] Address [address] [place] [address] Assessment Encounter Date Assessment Date Assessment LastModified by Organization Details LastModified Time 07/17/2024 07/17/2024 Ms. Tai is a 69-year-old female who was last seen July 24, 2023. Patient states today that she has no symptoms indicative of a urinary tract infection. She denies dysuria, urinary frequency, urgency or nocturia. Her p.o. intake is water, at least 3 cups of coffee each day and lemon water. For atrophic vaginitis she was prescribed Estrace cream which she states she uses occasionally. [email or web address] Not available 07/17/2024 13:19:23 Plan of Treatment Reminders Order Date Submit Date Provider Last Modified By Organization Details Last Modified Time Details Appointments OFFICE VISIT 30 2024 01:00P M Olive TORRES Not available Not available Not available Lab creatinin e, urine 2023 024 [facility], [address] [place] [address], [address] Floor, [place], [address], 07/17/2024 16:27:01 urinalysi s, dipstick, auto 2023 024 [email or web address] [facility], [address] [place] [address], [address] Floor, [place], [address], 07/17/2024 16:27:01 Referral None recorded. Procedures None recorded. Surgeries None recorded. Imaging None recorded. Medication Orders Macrobid 100 mg capsule 2023 024 [email or web address] Not available 07/17/2024 13:27:15 Patient Targets Encounter Date Encounter Id Patient Goals Patient Target Last Modified By Organization Details Last Modified Time Patient's goal is to reduce the frequency of urinary tract infection. [email or web address] Not available 07/17/2024 13:19:42 Patient Instructions Encounter Date Encounter Id Patient Instructions Last Modified By Organization Details Last Modified Time 07/17/2024 [id number] 1. Because her urine shows positive nitrates and large leukocytes. I prescribed Macrobid 100 mg twice daily for 5 days. After antibiotic treatment I recommend D-mannose and TheraCran daily for preventative measures. I also discussed with her bladder instillation of gentamicin which is a antibiotic into the bladder to help prevent further UTIs. Patient verbalized understanding and at this time want to go with the present treatment of Macrobid with the prophylactic therapy. 2. For atrophic vaginitis I recommend continue use of Estrace cream. I reviewed with patient the importance of Estrace cream. It helps to lubricate the membranes between the rectum, vagina, urethra for extra protection from migrating bacteria. Patient verbalized understanding. [email or web address] Not available 07/17/2024 13:26:46 Plan is for patient to take the Macrobid then after Macrobid therapy she will start the prophylactic therapy TheraCran and D-mannose Follow-up: Follow-up in 6 weeks to assess effectiveness of therapy. [email or web address] Not available 07/17/2024 13:27:14 Reason for Referral None Reported. Results Created Date Observation Date Name Description Value Unit Range Abnormal Flag Note LastModifiedBy Organization Detail LastModifiedTime 07/20/20 24 07/17/2024 CULTU RE URINE culture, urine ESCHER ICHIA COLI abnormal >100, 000 CFU/m L Esche jolly a coli The organ ism value for this resul t has been updat ed. These resul ts have been appen ded to the previ ouneena burris minpatrizia y duc ied repor t. Not Available [address], [address], 07/20/2024 10:08:28 07/20/20 24 07/17/2024 CULTU RE URINE report Susce ptibi lity Repor t Speci men Sourc e: Urine Colle cted: Jul 17, 2024 12:00 :00 ----- ----- ----- ----- ----- ----- ----- ----- ----- ----- ----- ----- ----- ----- ----- ----- Organ ism: ESCHE JOLLY A COLI Antib iotic s EVAN Inter preta tion ----- ----- ----- ----- ----- ----- ----- ----- ----- ----- ----- ----- ----- ----- ----- ----- Ampic illin Susc Islt 4 S ceFAZ annette Susc Islt 2 I Cefep una Susc Islt 0.12 S Cefpo doxim e Spec- mCnc 0.25 S cefTR IAXon e Susc Islt 0.25 S Cipro floxa jitendra Susc Islt 0.06 S Pip+T azo Susc Islt 4 S Tobra mycin Susc Islt 1 S TMP SMX Susc Islt 20 S Genta micin Susc Islt 1 S Nitro furan toin Susc Islt 16 S Not Available [address], [address], 07/20/2024 10:08:28 07/20/20 24 07/20/2024 CULTU RE URINE .note See Note Origi nal Order ing Provi david: TEA Judd Collemperatriz borat milo [facility] Serv[facility] d[facility] - [facility] at[facility] - [address] [facility] [place] [id number] Not Available [address], [address], 07/20/2024 10:08:28 07/17/20 24 07/17/2024 creat inine , urine creatinine 100 mg Not Available [facility] [address], [address], [place], [address], 07/17/2024 13:32:31 07/17/2007/17/2024 urina lysis , dipst ick, auto Leukocytes Negati ve Not Available [facility] [address], [address], [place], [address], 07/17/2024 13:32:37 07/17/2007/17/2024 urina lysis , dipst ick, auto Nitrite positi ve Not Available [facility] [address], [address], [place], [address], 07/17/2024 13:32:37 07/17/20 24 07/17/2024 urina lysis , dipst ick, auto Protein 100 Not Available [place] [address], [address], [place], [address], 07/17/2024 13:32:37 07/17/20 24 07/17/2024 urina lysis , dipst ick, auto pH 6.0 Not Available [place] [address], [address], [place], [address], 07/17/2024 13:32:37 07/17/20 24 07/17/2024 urina lysis , dipst ick, auto Blood Non-He molyze d: Trace Not Available [facility] [address], [address], [place], [address], 07/17/2024 13:32:37 07/17/20 24 07/17/2024 urina lysis , dipst ick, auto Specific [place] 1.015 Not Available [facility] [address], [address], [place], [address], 07/17/2024 13:32:37 07/17/20 24 07/17/2024 urina lysis , dipst ick, auto Ketone Negati ve Not Available [facility] [address], [address], [place], [address], 07/17/2024 13:32:37 07/17/20 24 07/17/2024 urina lysis , dipst ick, auto Glucose Negati ve Not Available [facility] [address], [address], [place], [address], 07/17/2024 13:32:37 07/17/20 24 07/17/2024 urina lysis , dipst ick, auto Appearance Clear Not Available [facility] [address], [address], [place], [address], 07/17/2024 13:32:37 07/17/20 24 07/17/2024 urina lysis , dipst ick, auto Color Yellow Not Available [address], [place], [address], 07/17/2024 13:32:37 Result Notes None recorded. Problems Name Problem SNOMED Code Status Onset Date Resolution Date Notes Provider Name and Address Organization Details Recorded Time Obesity caused by energy imbalance 146961586 Active 2018 Class 1 obesity due to excess calories with serious comorbidi ty and body mass index (BMI) of 31.0 to 31.9 in adult Not Available [facility] 4 19:52:16 Hypercalc emia 38537185 Active 2017 Hypercalc emia Not Available [facility] 4 19:52:16 Essential hypertens ion 01827863 Active 2018 Essential hypertens ion Not Available [facility] 4 19:52:16 Lipoprote in (a) hyperlipo proteinem ia Active 2022 Elevated Lp(a) Not Available [facility] 4 19:52:16 Allergic rhinitis 10085399 Active 2017 Non-seaso nal allergic rhinitis Not Available [facility] 4 19:52:16 Chronic kidney disease stage 3 683366959 Active 2017 Stage 3 chronic kidney disease - Overview: Formattin g of this note might be different from the original. 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 Formattin g of this note might be different from the original. 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 History of YAMEL on Vioxx Not Available [facility] 4 19:52:16 Hypothyro idism 42685441 Active 2017 Adult hypothyro idism Not Available [facility] 4 19:52:17 Aneurysm of ascending aorta 311562557 Active 2021 Ascending aortic aneurysm Not Available [facility] 4 19:52:17 Migraine without aura, not refractor y 857068334 Active 2017 Migraine without aura and without status migrainos us, not intractab le Not Available [facility] 4 19:52:17 Snoring 79761330 Active 2023 Primary snoring Not Available [facility] 4 19:52:17 Barretts esophagus with dysplasia 71376868388 75319 Active 2023 Gu's esophagus with dysplasia Not Available [facility] 4 19:52:17 Gastro-es ophageal reflux disease with esophagit is 679010244 Active 2021 Gastroeso phageal reflux disease with esophagit is Not Available [facility] 4 19:52:17 Family history of osteoporo sis 875400397 Active 2017 Family history of osteoporo sis in mother Not Available [facility] 4 19:52:18 Osteoporo sis 46249913 Active 2017 Osteoporo sis Not Available [facility] 4 19:52:18 History of primary hyperpara thyroidis m 09697220906 106 Active 2017 History of primary hyperpara thyroidis m; parathyro idectomy 01/2010 Not Available [facility] 4 19:52:18 Chronic cough 21929029 Active 2023 Chronic cough Not Available [facility] 4 19:52:18 History of procedure 740672243 Active 2018 H/O mammogram - Overview: Formattin g of this note might be different from the original. 9 mammogram Echocard iogram 01/05/22 - Overview: Formattin g of this note might be different from the original. Normal Not Available [facility] 4 19:52:18 Hyperchol esterolem ia 91566329 Active 2021 Hyperchol esterolem ia with LDL greater than 190 mg/dL Not Available [facility] 4 19:52:19 Pure hyperchol esterolem ia 091318723 Active 2021 Pure hyperchol esterolem ia Not Available [facility] 4 19:52:19 Recurrent urinary tract infection 939547308 Active 2023 Olive Alanis APRN [address] [place], [address] , [employer] 4 13:09:30 Acute urinary tract infection 566653980 Active 2023 DARRYN jiang, [facility] 4 14:55:57 Problem Notes None recorded. Medical Equipment None Reported. Medications Name Sig Start Date Stop Date Status Note LastModified by Organization Details LastModified Time metformin 500 mg tablet TAKE 1 TABLET BY MOUTH EVERY DAY WITH BREAKFAST , INCREASE TO 1 TABLET TWICE DAILY DAILY WITH MEALS AFTER 2 WEEKS 09/19 completed Not Available Not Available Not Available sumatriptan 100 mg tablet Take 1 tablet (100 mg total) by mouth 2 (two) times a day as needed for migraine. 09/19 completed Not Available Not Available Not Available Synthroid 125 mcg tablet active Not Available Not Available Not Available ciprofloxac in 500 mg tablet Take 1 tablet (500 mg total) by mouth 2 (two) times a day for 7 days. 06/10 completed Not Available Not Available Not Available Macrobid 100 mg capsule Take 1 capsule every 12 hours by oral route for 5 days. 2023 active Not Available Not Available Not Avai lable famotidine 20 mg tablet TAKE 1 TABLET(20 MG) BY MOUTH EVERY NIGHT AT BEDTIME active Not Available Not Available No t Available benzonatate 100 mg capsule active Not Available Not Available Not Available cephalexin 500 mg capsule TAKE 1 CAPSULE BY MOUTH TWICE DAILY FOR 7 DAYS active Not Available Not Available No t Available pantoprazol e 40 mg tablet,caryn yed release Take 1 tablet (40 mg total) by mouth every morning on an empty stomach. active Not Available Not Available No t Available losartan 25 mg tablet Take 1 tablet (25 mg total) by mouth daily. For blood pressure and kidneys 11/08 completed Not Available Not Available Not Available montelukast 10 mg tablet Take 1 tablet (10 mg total) by mouth daily. For allergies (in addition to Zyrtec) active Not Available Not Available No t Available Synthroid 112 mcg tablet TAKE 1 TABLET DAILY 10/17 completed Not Available Not Available Not Available albuterol sulfate HFA 90 mcg/actuati on aerosol inhaler active Not Available Not Available Not Available amoxicillin 875 mg-potassiu m clavulanate 125 mg tablet 1 bid x 5 days with meals 06/19 completed Not Available Not Available Not Available rosuvastati n 10 mg tablet Take 1 tablet (10 mg total) by mouth every night at bedtime. 09/19 completed Not Available Not Available Not Available cholecalcif jonah (vitamin D3) 25 mcg (1,000 unit) tablet Take 2,000 Units by mouth daily. 09/19 completed Not Available Not Available Not Available budesonide- formoterol HFA 160 mcg-4.5 mcg/actuati on aerosol inhaler INHALE 2 PUFFS INTO THE LUNGS TWICE DAILY active Not Available Not Available No t Available Jardiance 10 mg tablet active Not Available Not Available Not Available Vitals None Recorded Social History None recorded. Functional Status None recorded. Mental Status None recorded. Family History Nothing Reported. Medical History No medical history recorded. Gynecological HistoryNo gynecological history recorded. Obstetrics History GPAL:G 0 P 0 0 0 0 Immunizations Vaccine Type Date Status Note Provider Nam e and Address Organization Details Recorded Time zoster recombinant 2 completed Not Available [facility] 07/10/2024 23:17:53 pneumococcal polysaccharide PPV23 3 completed Not Available [facility] 07/10/2024 23:17:53 pneumococcal polysaccharide PPV23 4 completed Not Available [facility] 07/10/2024 23:17:53 Pneumococcal conjugate PCV 13 7 completed Not Available [facility] 07/10/2024 23:17:54 Influenza, injectable,quadriva lent, preservative free, pediatric 6 completed Not Available [facility] 07/10/2024 23:17:54 Pneumococcal conjugate PCV 13 4 completed Not Available [facility] 07/10/2024 23:17:54 COVID-19, mRNA, LNP-S, bivalent, PF, 30 mcg/0.3 mL dose 2 completed Not Available [facility] 07/10/2024 23:17:54 COVID-19, mRNA, LNP-S, PF, 30 mcg/0.3 mL dose 2 completed Not Available [facility] 07/10/2024 23:17:55 Influenza, split virus, quadrivalent, PF 5 completed Not Available [facility] 07/10/2024 23:17:55 zoster recombinant 2 completed Not Available [facility] 07/10/2024 23:17:55 zoster live 7 completed Not Available [facility] 07/10/2024 23:17:55 Influenza, split virus, quadrivalent, preservative 6 completed Not Available [facility] 07/10/2024 23:17:55 COVID-19, mRNA, LNP-S, PF, 100 mcg/0.5mL dose or 50 mcg/0.25mL dose 1 completed Not Available [facility] 07/10/2024 23:17:56 Tdap 4 completed Not Available [facility] 07/10/2024 23:17:56 COVID-19, mRNA, LNP-S, PF, 100 mcg/0.5mL dose or 50 mcg/0.25mL dose 1 completed Not Available [facility] 07/10/2024 23:17:56 Influenza, split virus, quadrivalent, PF 9 completed Not Available [facility] 07/10/2024 23:17:56 Influenza, split virus, quadrivalent, PF 8 completed Not Available [facility] 07/10/2024 23:17:56 Influenza, adjuvanted, quadrivalent, PF 3 completed Not Available [facility] 07/10/2024 23:18:00 COVID-19, mRNA, LNP-S, PF, 50 mcg/0.5 mL 3 completed Not Available [facility] 07/10/2024 23:18:01 Past Encounters Encounter ID Performer Location Encounter Start Date Encounter Closed Date Diagnosis/Indication Diagnosis SNOMED-CT Code Diagnosis ICD10 Code Diagnosis Note [id number] Olive Alanis APRN [address] [place] [address] 07/17/2024 12:30:11 07/17/2024 13:10:53 Recurrent urinary tract infection 288944487 N39.0 .Patient states if she does have a urinary tract infection she is not symptomati c it is only verified through urine culture. Her baseline for symptoms are very little frequency and urine odor. Health Concerns Section Related Observation LastModified by Organization Detai ls LastModified Time None Recorded Concern Status LastModified by Organization Details LastModified Time None Recorded Advance Directives Directive None Recorded Payers Encounter Date Sequence Insurance Name Policy Number Policy Harvey Covered Member ID Harvey Member ID Guarantor Name 07/17/2024 1 MEDICARE B-CT: NGS Ynes Schaefer Abdiel [id number] Ynes Schaefer Abdiel 07/17/2024 2 WPS - FOR LIFE (MEDICARE SUPPLEMENT) Ynes Jung Abdiel [id number] Ynes Schaefer Abdiel OBGyn Episode No OBEpisode recorded.
--- OUTSIDE RECORDS SUMMARY | 2024-09-09 15:22 | XMS_ITS | Clinical Summary ---
Author Organization [facility] Address [address] [place] [address] Care Team Providers Care Live In Companion Name Role Phone Kym Kenny Primary Care Provider [phone] Medications Medication Sig Dispensed Refills Start Date End Date Status albuterol (PROVENTIL HFA; VENTOLIN HFA) 108 (90 Base) MCG/ACT inhaler Inhale 2 puffs 4 times daily (every 6 hours) as needed. 05/04/2024 Active budesonide-formoterol (SYMBICORT) 160-4.5 MCG/ACT inhaler Inhale 2 puffs. 11/29/2023 Acti ve cholecalciferol 10 MCG (400 UNIT) tablet Take 1 tablet (400 Units total) by mouth. Active montelukast (SINGULAIR) 10 MG tablet Take 1 tablet (10 mg total) by mouth. 12/11/2023 05/04/2025 Active levothyroxine (SYNTHROID, LEVOTHROID) 125 MCG tablet Take 1 tablet (125 mcg total) by mouth. 03/29/2024 Active PANTOprazole (PROTONIX) 40 MG EC tablet Take 1 tablet (40 mg total) by mouth. 02/19/2024 Active rosuvastatin (CRESTOR) 10 MG tablet Take 1 tablet (10 mg total) by mouth daily. Active Encounters Date Type Department Care Team Description 08/28/2024 Orders Only [facility] Endocrinology [address] [address] Endocrinology , Scan 08/20/2024 Telephone [facility] End[facility]in[facility] [address] [address] Kassandra Berry MD 08/19/2024 10:30 AM EST Consult [facility] Endocrinology [address] [address] Kassandra Berry MD Hyperparathyroidism (Primary Dx); Acquired hypothyroidism; H/O parathyroidectomy; Stage 3b chronic kidney disease (HCC) 08/19/2024 Orders Only [facility] [place] [address] Primary Care, Scan 08/19/2024 Travel from Last 3 Months Social History Tobacco Use Types Packs/Day Years [...] Mass Index 18.24 08/19/2024 10:16 AM EST Plan of Treatment Upcoming Encounters Date Type Department Care Team (Late st Contact Info) Description 08/18/2025 3:15 PM EST Office Visit [facility] Endocrinology [address] [address] Kassandra Berry MD [address] [address] Health Maintenance Due Date Last Done Comments Hepatitis C Virus Screening 1955 DTaP/Tdap/Td Vaccines (1 - Tdap) 1974 Mammogram 1995 Colonoscopy 02/26/2000 Pneumococcal Vaccines 50+ (1 of 1 - PCV) 2005 Zoster (Shingles) Vaccine (1 of 2) 2005 RSV Vaccine 60 years and older and Patients (1 - Risk 60-74 years 1-dose series) 2015 Influenza Vaccine 03/05/2024 07/04/2023, , 06/04/2019, Additional history exists COVID-19 Vaccine ( season) 2024 07/04/2023, 05/08/2022, 10/26/2020, Additional history exists DXA Bone Density (Females,Ages 65 and older) 10/29/2025 10/30/2023 Hepatitis B Vaccines Aged Out No long er eligible based on patient's age to complete this topic Procedures Procedure Name Priority Date/Time Associated Diagnosis Comments VITAMIN D, 25-HYDROXY Routine 09/08/2024 10:51 AM EST Hyperparathyroidism Stage 3b chronic kidney disease (HCC) PHOSPHORUS Routine 09/08/2024 10:51 AM EST Hyperparathyroidism Stage 3b chronic kidney disease (HCC) MAGNESIUM Routine 09/08/2024 10:51 AM EST Hyperparathyroidism Stage 3b chronic kidney disease (HCC) PTH, INTACT WITH IONIZED CALCIUM Routine 09/08/2024 10:51 AM EST Hyperparathyroidism Stage 3b chronic kidney disease (HCC) LAB RESULT Routine 07/15/2024 11:36 AM EST LAB RESULT Routine 07/15/2024 10:18 AM EST IMAGING DEXA Routine 10/30/2023 from Last 3 Months or Most Recently Relevant to Health Maintenance Results * (ABNORMAL) PTH, INTACT WITH IONIZED CALCIUM (09/08/2024 10:51 AM EST) PTH, Intact 81(H) 16 - 77 pg/mL [facility] ([email or web address]) Comment: Interpretive Guide ?Intact PTH ? Calcium ? ------- Normal Parathyroid ?Normal ? Normal Hypoparathyroidism ?Low or Low Normal ?Low Hyperparathyroidism ?? Primary ?Normal or High ? High ?? Secondary ?High ? Normal or Low ?? Tertiary ? High ? High Non-Parathyroid ?? Hypercalcemia ?Low or Low Normal ?High Calcium 9.4 8.6 - 10.4 mg/dL [employer] Calcium, Ionized 5.1 4.7 - 5.5 mg/dL [employer] Blood Blood specimen / Unknown 09/08/2024 10:51 AM EST 09/08/2024 10:52 AM EST Narrative [facility] - 09/09/2024 1:48 PM EST FASTING:YES FASTING: YES Kassandra Berry MD LAB BLOOD ORDERABLES [email or web address] [address] [place] [phone] * VITAMIN D, 25-HYDROXY (09/08/2024 10:51 AM EST) Vitamin D,25-Oh,Total, IA 39 30 - 100 ng/mL [employer] Comment: Vitamin D Status ? 25-OH Vitamin D: Deficiency: ?<20 ng/mL Insufficiency: ? 20 - 29 ng/mL Optimal: ? > or = 30 ng/mL For 25-OH Vitamin D testing on patients on D2-supplementation and patients for whom quantitation of D2 and D3 fractions is required, the [facility]ureD() 25-OH VIT D, (D2,D3), LC/MS/MS is recommended: order code [id number] (patients >2yrs). See Note 1 Note 1 For additional information, please refer to http://education.Kairos/faq/CCQ419 (This link is being provided for informational/ educational purposes only.) Blood Blood specimen / Unknown 09/08/2024 10:51 AM EST 09/08/2024 10:52 AM EST Narrative [facility] - 09/09/2024 1:48 PM EST FASTING:YES FASTING: YES Kassandra Berry MD LAB BLOOD ORDERABLES Performing Organization Address [facility] Co de Phone Number [email or web address] [address] [place] [phone] * PHOSPHORUS (09/08/2024 10:51 AM EST) Phosphorus 3.7 2.1 - 4.3 mg/dL [employer] Blood Blood specimen / Unknown 09/08/2024 10:51 AM EST 09/08/2024 10:52 AM EST Narrative [facility] - 09/09/2024 1:48 PM EST FASTING:YES FASTING: YES Kassandra Berry MD LAB BLOOD ORDERABLES Performing Organization Address [facility] de Phone Number [email or web address] [address] [place] [phone] * MAGNESIUM (09/08/2024 10:51 AM EST) Magnesium 2.1 1.5 - 2.5 mg/dL [employer] Blood Blood specimen / Unknown 09/08/2024 10:51 AM EST 09/08/2024 10:52 AM EST Narrative [facility] - 09/09/2024 1:48 PM EST FASTING:YES FASTING: YES Kassandra Berry MD LAB BLOOD ORDERABLES Performing Organization Address [facility] Co de Phone Number [email or web address] [address] [place] [phone] * LAB RESULT (07/15/2024 11:36 AM EST) Only the most recent of2 resultswithin the time period is included. Scan Primary Care HX AMB PROCEDURES * Imaging Dexa (10/30/2023) Anatomical Region Laterality Modality Other External Provider MD ROBSON ROJAS from Last 3 Months or Most Recently Relevant to Health Maintenance Care Teams Live In Companion Relationship Specialty Start Date End Date Kym Kenny PA Needs valid address PCP - General 08/19/24
== END 2024-09-09 14:19 | disposition home or self-care (01) ==
PROVIDERS: PCP Physician Assistant Medical; Visit Provider Internal Medicine Hypertension Specialist
DX: I12.9 Hypertensive chronic kidney disease with stage 1 through stage 4 chronic kidney disease, or unspecified chronic kidney disease (principal); E83.52 Hypercalcemia; N18.9 Chronic kidney disease, unspecified
CPT/HCPCS: 99214

== ENCOUNTER → 2024-09-09 14:02 | Outpatient (BNVA) | payer MEDICARE, OTHER, SELFPAY | PROVIDERS: PCP Physician Assistant Medical; Visit Provider Internal Medicine Hypertension Specialist | DX: I12.9 Hypertensive chronic kidney disease with stage 1 through stage 4 chronic kidney disease, or unspecified chronic kidney disease (principal); N18.9 Chronic kidney disease, unspecified; E83.52 Hypercalcemia | CPT/HCPCS: 99212 ==